=== PATIENT | female | born 1950 | race Caucasian/White ===

== ENCOUNTER → 2019-10-01 09:00 | Outpatient (BNVA) | payer MEDICARE, OTHER, SELFPAY | PROVIDERS: Family Provider Family Medicine; PCP Nurse Practitioner Family; Visit Provider Nurse Practitioner Family | DX: I10 Essential (primary) hypertension (principal); E03.9 Hypothyroidism, unspecified; E55.9 Vitamin D deficiency, unspecified; E78.5 Hyperlipidemia, unspecified; L65.9 Nonscarring hair loss, unspecified; G47.00 Insomnia, unspecified | CPT/HCPCS: 80053; 80061; 82306; 84439; 84443 ==

== ENCOUNTER 2020-09-23 01:54 | Observation (INO) | payer MEDICARE, OTHER, SELFPAY ==
[2020-09-23] VITALS (9 sets, daily range): BP systolic 135–163; BP diastolic 68–82; PULSE 68–84; RESP 17–21; TEMP 36.6–37.2; O2SAT 93–97; BMI 30.2
--- NOTE | 2020-09-23 01:59 | W.ED.ALLEREA ---
HPI - Allergic Reaction General: Chief complaint: Allergic Reaction Stated complaint: ALLERGIC REACTION Time Seen by Provider: 09/23/20 01:57 Source: patient, family and EMS Mode of arrival: EMS Limitations: no limitations History of Present Illness: HPI narrative: 70-year-old female developed acute onset diffuse urticaria this evening, she called 911, her is a chemist proteins and happened to take the call, he administered 50 mg of Benadryl, Zofran 4 mg-her rash started to dissipate, she became hypotensive and had a syncopal episode, systolic pressures in the 70s. No oral or airway involvement at any point. Her blood pressure is improved with a saline bolus. She at that time was resistant to coming to the ED, so her was in the stay and watch her for period of time. I had been on the phone with him while he was out at the initial call. I recommended that he give her a dose of Depo-Medrol 125 mg IM and come to the ED if there is any recurrence. Shortly after that, she did have recurrence of the diffuse rash and itching, he administered 0.3 mg IM epi and transported her here to the ED. She denies any lip, tongue, or throat swelling. No hoarseness. No wheezing or coughing. She has had episodes of urticaria in the past, but never this widespread or symptomatic. She has been eating some flavored pecans this evening-she had a few around 6 PM, and then ate some more a few hours later, just prior to the onset of symptoms. No new medications. MD complaint: allergic reaction and hives Onset (ago): hour(s) Exposure: unknown and food Associated symptoms: Deny facial swelling, nausea, tongue swelling or vomiting Treatment prior to arrival: benadryl, epinephrine, steroids and IV fluids Review of Systems General: Reports: 10 or more systems reviewed and unremarkable except in HPI and below Const: Denies: fever(s), chills, body aches, change in appetite or fatigue Eyes: Denies: change in vision, blurry vision, blind spots, eye discomfort, eye discharge or eye redness ENMT: Denies: throat pain, uvular edema, enlarged tonsils, odynophagia or oral sores Card: Denies: chest pain, irregular heart rhythm or edema Resp: Denies: dyspnea, wheezing, stridor, pain on inspiration or chest congestion GI: Denies: nausea, vomiting, diarrhea or GI cramping : Denies: difficulty voiding, dysuria or urinary frequency Musc: Denies: neck pain, back pain or extremity pain Skin/Breast: Reports: rash, pruritus and erythema Neuro: Denies: headache(s), numbness in extremities or weakness in extremities Endo: Denies: polyuria, polydipsia or tired all the time All/Imm: Reports: urticaria; Denies: throat swelling, tongue swelling, facial swelling, acute wheezing, itchy eyes or seasonal rhinorrhea PFSH ED PFSH: Medical History Acquired hypothyroidism CAD (coronary artery disease) Depression History of [place] (myocardial infarction) Hyperlipidemia Hypertension Insomnia Family History Sister Cancer Mother Heart disease Hypertension Social History Smoking and tobacco status: never smoked Alcohol intake: current Alcohol intake frequency: 0-2 Drinks per Day Physical Exam Const: COMMON NORMALS: no acute distress and patient oriented x3 GENERAL APPEARANCE: cooperative, comfortable, anxious and well hydrated; not in distress, not lethargic, not ill appearing and not frail appearing ORIENTATION/CONSCIOUSNESS: not lethargic HENMT: COMMON NORMALS: normocephalic, atraumatic and TM's normal bilaterally HEAD & SCALP: normocephalic and atraumatic FACE & SINUS: normal facial exam, sinuses nontender and face symmetric TYMPANIC MEMBRANE: TM's normal bilaterally THROAT: no uvular edema Eye: COMMON NORMALS: Equal, round and reactive pupils present, EOMs intact bilaterally, conjunctivae normal and no scleral icterus CONJUNCTIVA: Yes conjunctivae normal PUPIL: Yes Equal, round and reactive pupils present Resp: COMMON NORMALS: normal respiratory effort, No retractions, No use of accessory muscles and clear to auscultation bilaterally EFFORT & INSPECTION: No labored and No stridor AUSCULTATION: clear to auscultation bilaterally Cardio: COMMON NORMALS: regular rate and regular rhythm RATE: regular rate RHYTHM: regular rhythm HEART SOUNDS: Murmur heart sound present systolic Intensity: II/ Characteristics: soft GI: COMMON NORMALS: Normal to inspection, nondistended, normoactive bowel sounds present, Soft to palpation and non-tender INSPECTION: Yes normal to inspection PALPATION: Yes Soft to palpation Extremity: COMMON NORMALS: normal to inspection, full ROM, capillary refill normal and no clubbing, cyanosis or edema Neuro: COMMON NORMALS: patient oriented x3, CN's II-XII intact bilaterally, moves all extremities, no focal motor deficits and no sensory deficits noted SENSORIUM/ORIENTATION: No lethargic Skin: COMMON NORMALS: turgor normal GENERAL SKIN EXAM: turgor normal RASHES: rashes noted Patchy urticaria over extensor surfaces of arms, back Rash type: Yes patch and Yes maculopapular Rash distribution: Yes symmetrical, Yes coalescing and Yes scattered Rash color: Yes erythematous Rash shape: No target and No central clearing Rash consistency: No fluctuent, Yes soft, No rubbery and No indurated Rash surface: Yes warm Rash tenderness: Yes nontender Rash findings consistent with: Yes hives Course Vital Signs: Vital signs: Vital Signs Temperature 98.8 F 09/23/20 01:55 Pulse Rate 83 09/23/20 03:58 Respiratory Rate 21 H 09/23/20 03:58 Blood Pressure 163/79 09/23/20 03:58 Pulse Oximetry 96 09/23/20 03:58 MDM - Allergic Reaction MDM Narrative: Medical decision making narrative: 70-year-old female with diffuse urticaria, allergic reaction to unknown substance. Had improvement initially with IV Benadryl and Solu-Medrol, but then had recurrence of symptoms shortly after, so she was brought to the ED. CBC and chemistry stable. UA does not show any sign of infection. Admit to [facility] for further monitoring to ensure no recurrence. Discussed the case with , he accepts the admission. Differential Diagnosis: Differential Diagnosis allergic reaction: Likely anaphylaxis, allergic reaction, angioedema, adverse reaction to drug, viral enanthem and urticaria Lab Data: Attestation: I reviewed the patient's lab results. Labs: Lab Results 09/23/20 09/23/20 09/23/20 Range/Units 02:53 02:53 03:10 WBC 11.6 H (4.0-10.0) 10^3/ uL RBC 4.40 (4.1-5.3) 10^6/u L Hgb 13.6 (11.5-15.3) g/dL Hct 43.0 (37.0-47.0) % MCV 97.7 (81-99) fL MCH 30.9 (28.0-34.0) pg MCHC 31.6 (30.0-36.0) g/dL RDW 12.7 (12.1-15.1) % Plt Count 196 (130-400) 10^3/c mm MPV 10.6 H (7.4-10.4) fL Neut % (Auto) 85.5 % Lymph % (Auto) 10.2 % [place] % (Auto) 3.3 % Eos % (Auto) 0.3 % Baso % (Auto) 0.4 % Neut # (Auto) 9.86 H (1.8-7.7) 10^3/u L Lymph # (Auto) 1.2 (0.8-4.8) 10^3/u L [place] # (Auto) 0.4 (0.2-0.9) 10^3/u L Eos # (Auto) 0.0 (0.0-0.8) 10^3/u L Baso # (Auto) 0.1 (0.0-0.1) 10^3/u L Nucleated RBC % (a uto) 0 % Nucleated RBCs # 0.0 /100WBC Sodium 144 (136-145) mmol/L Potassium 3.4 L (3.5-5.1) mmol/L Chloride 110 H (98-107) mmol/L Carbon Dioxide 20 L (22-29) mmol/L Anion Gap 17.4 (5-19) BUN 17 (8-23) mg/dL Creatinine 0.8 (0.5-0.9) mg/dL GFR Calculation Not Reportable Glucose 236 H (65-115) mg/dL Calculated Osmolal ity 307 H (285-295) mOsm/k g Calcium 7.9 L (8.5-10.5) mg/dL Total Bilirubin 0.2 (0.15-1.2) mg/dL AST 17 (0-32) U/L ALT 14 (0-33) U/L Alkaline Phosphata se 79 (35-105) IU/L Total Protein 6.5 L (6.6-8.7) g/dL Albumin 3.6 (3.5-5.2) g/dL Globulin 2.9 (1.3-4.6) g/dL Urine Color Yellow (Yellow) Urine Appearance Clear (CLEAR) Urine pH 5 (5-7) Ur Specific Gravit y 1.020 (1.005-1.030) Urine Protein Neg (Negative) Urine Glucose (UA) 1+ (Normal) Urine Ketones Negative (Negative) Urine Blood Neg (Negative) Urine Nitrate Negative (Negative) Urine Bilirubin Neg (Negative) Urine Urobilinogen Norm (Negative) mg/dL Ur Leukocyte Nikki ase Negative (Negative) Discharge Plan Discharge Patient Disposition: Admitted As Inpatient Condition: Stable Coding Level of Care Code ED [employer] Tm[employer] Developer for Nick Fwd Exam Comprehensive
[2020-09-23] MEDS: diphenhydrAMINE 50 mg/mL SDV 1mL IVP (02:22)
[2020-09-23] MEDS: famotidine 20 mg/2 mL INJ 40 MG IVP (02:26)
[2020-09-23 03:07] LABS: Basophils # 0.1 10^3/uL (0.0-0.1); Basophils % 0.4 %; Eosinophils % 0.3 %; Hemoglobin 13.6 g/dL (11.5-15.3); Lymphocytes # 1.2 10^3/uL (0.8-4.8); Lymphocytes % 10.2 %; Mean Corpuscular HGB Conc 31.6 g/dL (30.0-36.0); Mean Corpuscular Hemoglobin 30.9 pg (28.0-34.0); Mean Corpuscular Volume 97.7 fL (81-99); Mean Platelet Volume 10.6 fL (7.4-10.4); Monocytes # 0.4 10^3/uL (0.2-0.9); Monocytes % 3.3 %; Neutrophils # 9.86 10^3/uL (1.8-7.7); Neutrophils % 85.5 %; Nucleated Red Blood Cells % 0 %; Platelet Count 196 10^3/cmm (130-400); Red Cell Distribution Width 12.7 % (12.1-15.1); White Blood Count 11.6 10^3/uL (4.0-10.0)
[2020-09-23 03:14] LABS: Add Urine Microscopic? NO
[2020-09-23 03:16] LABS: Alanine Aminotransferase 14 U/L (0-33); Albumin Level 3.6 g/dL (3.5-5.2); Alkaline Phosphatase 79 IU/L (35-105); Anion Gap 17.4 (5-19); Aspartate Amino Transferase 17 U/L (0-32); Blood Urea Nitrogen 17 mg/dL (8-23); Calcium 7.9 mg/dL (8.5-10.5); Carbon Dioxide 20 mmol/L (22-29); Chloride 110 mmol/L (98-107); Globulin 2.9 g/dL (1.3-4.6); Glucose 236 mg/dL (65-115); Osmolality Calculated 307 mOsm/kg (285-295); Potassium 3.4 mmol/L (3.5-5.1); Sodium 144 mmol/L (136-145); Total Bilirubin 0.2 mg/dL (0.15-1.2); Total Protein 6.5 g/dL (6.6-8.7)
[2020-09-23 03:18] LABS: Bilirubin Urine Neg (Negative); Blood Urine Neg (Negative); Glucose Urine UA 1+ (Normal); Ketones Urine Negative (Negative); Leukocyte Esterase Urine Negative (Negative); Nitrate Urine Negative (Negative); Protein Urine Neg (Negative); Urine Appearance Clear (CLEAR); Urine Color Yellow (Yellow); Urobilinogen Urine Norm (Negative); pH Urine 5 (5-7)
[2020-09-23] MEDS: calcium carbonate 500 mg Chew Tablet 1000 MG PO (03:57)
--- NOTE | 2020-09-23 05:40 | P.HP_ITS ---
Providers/Chief Complaint Admitting Physician: Hari Li Primary Care Provider: Stuart Pan DO Chief Complaint: ALLERGIC REACTION History of Present Illness Adela Spears is a 70 year old female with past medical history of hypertension, coronary artery disease s/p hx of PCI/stent, bilateral carotid artery stenosis, s/p stent who is presenting to ER with allergic reactions. Patient stated shortly after dinner where she tired a new snack, she started to have diffuse urticarial rash primarily in bilateral upper extremity. did not have any tongue swelling or airway compromise. She called her who is a local EMS who up arrival found her to be hypotensive with sbp < 70. He started an IV and administered 1L bolus of NS, solu-medrol 125mg IV x1 and Benadryl. . During this time he stated she briefly had a syncopal event lasting 25 seconds. Epi x 1 was then given. Initially hives had resolved however started to return at which point she was brought to ER. While in ER she was given additional anti- histamines. Denied any new medications or any known allergies. She does have unexplained contact dermatitis at times. Denied any recent fever, chills, nausea or vomiting. No chest pain or dyspnea. Review of Systems General: Reports: 10 or more systems reviewed and unremarkable except in HPI and below Medications/Allergies Home Medications Medication Instructions Recorded Confirmed Last Taken Type aspirin 81 mg tablet,delayed 81 mg PO DAILY 10/01/19 02/25/20 Unknown History release atorvastatin 20 mg tablet 20 mg PO DAILY 10/01/19 02/25/20 Unknown History biotin 1 mg capsule 1 mg PO DAILY 10/01/19 02/25/20 Unknown History calcium carbonate 600 mg calcium 600 mg PO DAILY 10/01/19 02/25/20 Unknown History (1,500 mg) tablet cholecalciferol (vitamin D3) 50 1,000 unit PO DAILY tab 10/01/19 02/25/20 Unknown History mcg (2,000 unit) tablet clopidogrel 75 mg tablet 75 mg PO DAILY 10/01/19 02/25/20 Unknown History coenzyme Q10 75 mg capsule 100 mg PO DAILY cap 10/01/19 02/25/20 Unknown History levothyroxine 25 mcg capsule 25 mcg PO DAILY 10/01/19 02/25/20 Unknown History lorazepam 1 mg tablet 1 mg PO .COMPLEX PRN #30 tab 10/01/19 02/25/20 Unknown Rx magnesium 200 mg tablet 400 mg PO DAILY tab 10/01/19 02/25/20 Unknown History multivitamin 1 cap PO DAILY 10/01/19 02/25/20 Unknown History nitroglycerin 0.4 mg sublingual 0.4 mg SUBLINGUAL Q5M PRN 10/01/19 02/25/20 Unknown History tablet metoprolol succinate 25 mg 12.5 mg PO .BEDTIME #15 tab 09/22/20 Unknown Rx tablet,extended release 24 hr Allergies Allergy/AdvReac Type Severity Reaction Status Date / Time No Known Allergies Allergy Verified 02/25/20 15:40 PFSH Acute PFSH: Medical History (Updated 09/23/20 @ 05:54 by Hari Li MD) Acquired hypothyroidism CAD (coronary artery disease) Depression History of [place] (myocardial infarction) Hyperlipidemia Hypertension Insomnia Family History Sister Cancer Mother Heart disease Hypertension Social History Smoking and tobacco status: never smoked Alcohol intake: current Alcohol intake frequency: 0-2 Drinks per Day Vitals/I&O/Wt Last Vital Signs Temp 98.8 F 09/23/20 01:55 Pulse 72 09/23/20 05:00 Resp 18 09/23/20 05:00 BP 157/81 09/23/20 05:00 Pulse Ox 95 09/23/20 05:00 Weight last 48 hrs Weight 84.822 kg Physical Exam Narrative: EXAM NARRATIVE: General : Alert, awake oriented x 3 NAD HEENT: EOMI, grossly unremarkable Chest : Non-labored respiration CVS : NSR ABD: Soft,NT,ND Ext: No edema Skin: diffuse smooth, slightly elevated papules, erythematous, blanching with pressure. Data : 09/23/20 02:53 09/23/20 02:53 A&P Assessment and plan (1) Allergic reaction: Status: Acute (2) Syncope: Status: Acute (3) Hypotension: Status: Acute (4) CAD (coronary artery disease): Status: Acute Qualifiers: Coronary Disease-Associated Artery/Lesion type: [place] artery [place] vs. transplanted heart: [place] heart Associated angina: without angina Qualified Code(s): I25.10 - Atherosclerotic heart disease of [place] coronary artery without angina pectoris (5) Hypertension: Status: Acute (6) Acquired hypothyroidism: Status: Acute (7) Hyperlipidemia: Status: Acute Qualifiers: Hyperlipidemia type: other hyperlipidemia Qualified Code(s): E78.49 - Other hyperlipidemia (8) Insomnia: Status: Acute (9) Hypokalemia: Status: Acute Anaphylaxis - Possibly food related - S/p Epi - S/p solu-medrol 125mg x 1 in EMS - Continue solumedrol 40 mg IV q8hr - Pepcid 20 mg po BID - Zyrtec 10 mg PO daily - Benadryl PRN - NS at 75cc/hr - Refer to call center operations manager outpatient once off steroids - Resume home medications - Monitor on tele due to epi Dispo: If stable and noted improvement may consider discharge later today Attestations Medical Necessity Statement*: Anticipate less than 2 midnight stay in hospital for work up of allergic reaction Time Spent in Patient Care: Greater than 35 minutes (>than 50% of time spent in counselling and/or direct pt care on unit) . Coding Level of Care Code Acute First Officer And Flight Instructor for g Fwd Diagnoses Allergic reaction T78.40XA Syncope R55 Hypotension I95.9 CAD (coronary artery disease) I25.10 Coronary Disease-Associated Artery/Lesion type: [place] artery [place] vs. transplanted heart: [place] heart Associated angina: without angina Hypertension I10 Acquired hypothyroidism E03.9 Hyperlipidemia E78.49 Hyperlipidemia type: other hyperlipidemia Insomnia G47.00 Hypokalemia E87.6
[2020-09-23] MEDS: sodium chloride 0.9% 500 ML 75 ML IV (05:52)
[2020-09-23] MEDS: potassium chloride ER 20 mEq Tablet PO (06:38)
[2020-09-23] MEDS: cetirizine 10 mg Tablet PO (09:27)
[2020-09-23] MEDS: aspirin 81 mg EC Tablet PO (09:27)
[2020-09-23] MEDS: clopidogrel 75 mg Tablet PO (09:27)
[2020-09-23] MEDS: famotidine 20 mg Tablet PO (09:27)
[2020-09-23] MEDS: levothyroxine 25 mcg Tablet PO (09:27)
--- NOTE | 2020-09-23 09:47 | PC.CHAP ---
Pastoral Care Encounter/Spiritual Assessment Type of Contact [] Declined dietetics teacher visit [] Patient/Family/Request visit [] Outpatient visit [] Follow-up visit [] Physician referral [] Code/Alert [x] Routine visit [] Staff referral [] Actively dying [] Patient sleeping [] Family support [] [] Out of room [] Palliative care [] [] Receiving care in room [] Pre-surgical visit [] Trauma [] Long length of stay [] ICU visit [] Other: Relational/Emotional Strength [x] Patient feels connected with others/family/visitors/staff [] Distress [] Loneliness/isolation [] Abandonment Spirituality of Patient [x] Person of Mansi [x] Attends Spiritism of their Mansi [x] Believes in Prayer [x] Reads Bible or Quaker materials [] There are Spiritual issues to be addressed Hammer Mill 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 Interventions [x] Prayer [] Active listening [x] Non-anxious presence [x] Spiritual/emotional support [] Crisis/trauma care [] Spiritual counseling [] Bereavement support [] Provided bereavement packet [] Provided Bible/devotional materials [] Provided toy/stuffed animal, coloring book to patient or family member [] Provided Communion [] Anointing/[place] [] Salvation [x] Completed spiritual assessment [] Other: Impact on Illness or Injury [] Angry [] Fearful [] Anxious [] Often cries [] Exhaustion [] Unable to work [] Unable to attend evangelical [] Unable to walk/stand [] Unable to read [] Unable to drive [] Unable to eat/drink [] Unable to sleep [] Unable to be with family [] Patient intubated [] Other: Summary patient interest in helping others Time spent with patient 20 min
--- NOTE | 2020-09-23 10:44 | P.DS_ITS ---
Discharge Providers Date of Admission: 09/23/20 04:06 Date of Discharge: September 23, 2020 Attending Provider at Admission: Hari Li Attending Provider at Discharge: Bronson Arias MD Primary Care Provider: Stuart Pan DO Diagnoses at Discharge Discharge Diagnosis (1) Allergic reaction: Status: Acute (2) Syncope: Status: Acute (3) Hypotension: Status: Acute (4) CAD (coronary artery disease): Status: Acute Qualifiers: Coronary Disease-Associated Artery/Lesion type: [place] artery [place] vs. transplanted heart: [place] heart Associated angina: without angina Qualified Code(s): I25.10 - Atherosclerotic heart disease of [place] coronary artery without angina pectoris (5) Hypertension: Status: Acute (6) Acquired hypothyroidism: Status: Acute (7) Hyperlipidemia: Status: Acute Qualifiers: Hyperlipidemia type: other hyperlipidemia Qualified Code(s): E78.49 - Other hyperlipidemia (8) Insomnia: Status: Acute (9) Hypokalemia: Status: Acute Reason for Visit Reason for Visit: ALLERGIC REACTION Hospital Course Hospital Course This is a 70-year-old female with a past medical history of hypertension, CAD status post history of PCI/stent, bilateral carotid artery stenosis, who presents to [facility] due to an allergic reaction Patient developed an allergic reaction after consuming chocolate covered pecans, no anaphylaxis, no airway compromise, no tongue swelling, but had diffuse rash with hypotension, her who is an EMT was able to give her a liter of fluid, Solu-Medrol, Benadryl. She then developed a syncopal episode outside the hospital thought to be secondary to allergic reaction, was given epi x1. Patient clinically improved, however developed a rebound phenomenon with recurrent wheals and hives so was brought to the emergency room, arrival to the emergency room, her allergic reaction had significantly improved, she was given additional antihistamines, Patient was examined on 09/23/2020, no lip or tongue swelling, no wheals or hives, no lightheadedness, no dizziness, no chest pain, no shortness of breath she was admitted for monitoring after allergic reaction. She received steroids, fluids, Pepcid, Zyrtec, Benadryl as needed, clinically monitored. Patient remained asymptomatic, no rebound phenomenon. She will be discharged on a steroid taper, Pepcid, Zyrtec, EpiPen. Patient was advised to avoid all types of nuts for now. In addition we have referred her to an licensed practical nurse clinic nurse. She was advised that if she were to have recurrent allergic reaction to call 911. Physical Exam Const: COMMON NORMALS: no acute distress and patient oriented x3 HENMT: COMMON NORMALS: normocephalic HEAD & SCALP: normocephalic Neck/C-Spine: COMMON NORMALS: no JVD Resp: COMMON NORMALS: normal respiratory effort, No retractions, No use of accessory muscles and clear to auscultation bilaterally AUSCULTATION: clear to auscultation bilaterally Cardio: COMMON NORMALS: no JVD, regular rate, regular rhythm, S1 normal heart sound present and S2 normal heart sound present RATE: regular rate RHYTHM: regular rhythm HEART SOUNDS: S1 normal heart sound present and S2 normal heart sound present GI: COMMON NORMALS: Normal to inspection, nondistended, normoactive bowel sounds present, Soft to palpation, non-tender, No hepatosplenomegaly present, no masses and no bruits PALPATION: Yes Soft to palpation and Yes No hepatosplenomegaly present Extremity: COMMON NORMALS: capillary refill normal, no clubbing, cyanosis or edema, no calf tenderness and no pedal edema Neuro: COMMON NORMALS: patient oriented x3 Psych: COMMON NORMALS: mental status grossly normal Discharge Data Data Completed and Pending: Pending at discharge Category Date Time Status Basic Metabolic P yoana AM LABS Lab 09/24/20 04:00 Ordered Complete Blood Co unt w/Auto AM LABS Lab 09/24/20 04:00 Ordered Labs from last 24 hours 09/23/20 09/23/20 09/23/20 03:10 02:53 02:53 WBC 11.6 H RBC 4.40 Hgb 13.6 Hct 43.0 MCV 97.7 MCH 30.9 MCHC 31.6 RDW 12.7 Plt Count 196 MPV 10.6 H Neut % (Auto) 85.5 Lymph % (Auto) 10.2 [place] % (Auto) 3.3 Eos % (Auto) 0.3 Baso % (Auto) 0.4 Neut # (Auto) 9.86 H Lymph # (Auto) 1.2 [place] # (Auto) 0.4 Eos # (Auto) 0.0 Baso # (Auto) 0.1 Nucleated RBC % (a uto) 0 Nucleated RBCs # 0.0 Sodium 144 Potassium 3.4 L Chloride 110 H Carbon Dioxide 20 L Anion Gap 17.4 BUN 17 Creatinine 0.8 GFR Calculation Not Reportable Glucose 236 H Calculated Osmolal ity 307 H Calcium 7.9 L Total Bilirubin 0.2 AST 17 ALT 14 Alkaline Phosphata se 79 Total Protein 6.5 L Albumin 3.6 Globulin 2.9 Urine Color Yellow Urine Appearance Clear Urine pH 5 Ur Specific Gravit y 1.020 Urine Protein Neg Urine Glucose (UA) 1+ Urine Ketones Negative Urine Blood Neg Urine Nitrate Negative Urine Bilirubin Neg Urine Urobilinogen Norm Ur Leukocyte Nikki ase Negative Vitals: Last Vital Signs Temp 97.8 F 09/23/20 07:01 Pulse 68 09/23/20 07:01 Resp 17 09/23/20 07:01 BP 143/75 09/23/20 07:01 Pulse Ox 93 09/23/20 07:01 Discharge Plan Discharge Patient Disposition: Home Condition: Stable Prescriptions: New famotidine 20 mg Tablet 20 mg PO BID 15 Days Qty: 30 RF: 0 cetirizine 10 mg Tablet 10 mg PO DAILY 15 Days Qty: 15 RF: 0 epinephrine [EpiPen] 0.3 mg/0.3 mL auto-injector 0.3 mg IM Q10M PRN (Reason: hypersensitivity reaction or anaphylaxis) Qty: 2 RF: 0 prednisone 10 mg tablet See Rx Instructions .ROUTE .COMPLEX Qty: 53 RF: 0 Continued clopidogrel [Plavix] 75 mg tablet 75 mg PO BEDTIME RF: 0 aspirin [Adult Aspirin Regimen] 81 mg tablet,delayed release (DR/EC) 81 mg PO BEDTIME RF: 0 atorvastatin 20 mg tablet 20 mg PO BEDTIME RF: 0 levothyroxine 25 mcg capsule 25 mcg PO QAM RF: 0 nitroglycerin 0.4 mg tablet, sublingual 0.4 mg SUBLINGUAL Q5M PRN (Reason: Chest Pain) RF: 0 calcium carbonate [Calcium 600] 600 mg calcium (1,500 mg) tablet 600 mg PO DAILY RF: 0 metoprolol succinate 25 mg tablet extended release 24 hr 12.5 mg PO .BEDTIME Qty: 15 RF: 0 multivitamin Tablet 1 tab PO BEDTIME RF: 0 Benadryl 25 mg Capsule 25 - 50 mg PO PRN RF: 0 bisacodyl 5 mg Tablet,Delayed Release (Dr/Ec) 5 mg PO PRN PRN (Reason: Constipation (2nd)) RF: 0 lorazepam 1 mg tablet 1 mg PO BEDTIME PRN (Reason: Anxiety) RF: 0 CoQ-10 100 mg Capsule 100 mg PO DAILY RF: 0 magnesium oxide 400 mg magnesium Tablet 400 mg PO DAILY RF: 0 Metamucil See Rx Instructions .ROUTE .COMPLEX RF: 0 Vitamin D3 1 cap PO DAILY RF: 0 biotin 1 cap PO DAILY RF: 0 Discharge Orders: Discharge Order (Routine); Ordered 09/23/20 Ordered By: Bronson Arias Referrals: Donavan Ames DO [Family Provider] - Stuart Pan DO [Primary Care Provider] - Discharge Diet: As Directed Discharge Activity: Resume usual activity Patient Instructions: Food Allergy - Adult, Nut Allergy, Analgesic/Antihistamine/Decongestant (By mouth), Antihistamine/Acetaminophen (By mouth), Food Allergy (DC), Anaphylaxis (DC) Activity Restrictions/Additional Instructions: -For now I would avoid all type of nuts -Please continue steroid taper, Pepcid, cetirizine -EpiPen should always be carried on hand in case you have anaphylactic reaction or allergic reaction -I have referred you to a older adult social work specialist in [place], lashon vega, [phone] Discharge Attestations Time Spent in Discharge Care*: less than 30 min Quality Metrics Clinical Quality Measures During this hospital stay, did patient experience: None Coding Level of Care Code Acute Chg FW DC note Diagnoses Allergic reaction T78.40XA Syncope R55 Hypotension I95.9 CAD (coronary artery disease) I25.10 Coronary Disease-Associated Artery/Lesion type: [place] artery [place] vs. transplanted heart: [place] heart Associated angina: without angina Hypertension I10 Acquired hypothyroidism E03.9 Hyperlipidemia E78.49 Hyperlipidemia type: other hyperlipidemia Insomnia G47.00 Hypokalemia E87.6
== END 2020-09-23 13:30 | disposition home or self-care (01) ==
LOC: ER 04:06 → MEDSURG 04:58
PROVIDERS: Admitting Provider Hospitalist; Emergency Provider Family Medicine; Family Provider Family Medicine; PCP Family Medicine; Visit Provider Family Medicine
DX: T78.40XA Allergy, unspecified, initial encounter (principal); R55 Syncope and collapse; I95.9 Hypotension, unspecified; I25.10 Atherosclerotic heart disease of native coronary artery without angina pectoris; I10 Essential (primary) hypertension; E78.49 Other hyperlipidemia; G47.00 Insomnia, unspecified; E87.6 Hypokalemia; E03.9 Hypothyroidism, unspecified; Z95.5 Presence of coronary angioplasty implant and graft; Z79.82 Long term (current) use of aspirin; I25.2 Old myocardial infarction; E78.5 Hyperlipidemia, unspecified
CPT/HCPCS: 36415; 80053; 81003; 85025; 96361; 96374; 96375; 99285; G0378; J1200; J2920; J3490; J7040

== ENCOUNTER 2021-01-06 09:52 | Outpatient (CLI) | payer MEDICARE, OTHER, SELFPAY ==
--- NOTE | 2021-01-06 10:12 | USCV_ITS ---
Adela Spears Age: 70 Gender: F : 1950 Exam Date: 01/06/2021 10:31 Ordering Phys: Maryann Carbone MD ([email or web address]) Technologist: Prachi Rico [place] [facility] [place]: SHORTNESS OF BREATH BP: 120 / 70 HR: 78 Rhythm: Sinus Technical Quality: Adequate MEASUREMENTS (Male / Female) Normal Values 2D ECHO LV Diastolic Diameter PLAX 3.7 cm 4.2 - 5.9 / 3.9 - 5.3 cm LV Systolic Diameter PLAX 1.9 cm IVS Diastolic Thickness 1.3 cm 0.6 - 1.0 / 0.6 - 0.9 cm IVS Systolic Thickness 1.7 cm LVPW Diastolic Thickness 1.0 cm 0.6 - 1.0 / 0.6 - 0.9 cm LVPW Systolic Thickness 1.3 cm RV Chamber Size 2.9 cm LVOT Diameter 2.0 cm LV Ejection Fraction 2D Teich 79.4 % LV Ejection Fraction MOD 2C 61.0 % LV Ejection Fraction 2C AL 63.1 % LA Diameter 2.4 cm LA Width 2.6 cm LA Height 4.0 cm RA Width 3.0 cm RA Height 3.3 cm Aorta at Sinotubular Diameter 2.1 cm M-MODE Aortic Annulus Diameter 2.8 cm LA Ao Ratio MM 0.9 MV E Point Septal Separation 0.6 cm DOPPLER AV Peak Velocity 123.0 cm/s LVOT Peak Velocity 75.0 cm/s AV Area Cont Eq vti 2.0 cm squared AV Area Cont Eq pk 1.9 cm squared MV Area PHT 4.0 cm squared Mitral E to A Ratio 0.8 MV E' Velocity 34.0 cm/s Mitral E to MV E' Ratio 7.7 Mitral E to LV E' Lateral Ratio 6.3 Mitral E to LV E' Septal Ratio 9.9 TR Peak Velocity 150.0 cm/s TR Peak Gradient 9.0 mmHg TV Peak E Velocity 50.0 cm/s PV Peak Velocity 83.0 cm/s RV Acceleration Time 0.1 s RV Ejection Time 0.2 s RV AcT/ET 0.2 FINDINGS Left Ventricle Normal left ventricular cavity size. Normal left ventricular systolic function. No regional wall motion abnormalities. Left ventricular ejection fraction is estimated at 65 %. Grade I/IV diastolic dysfunction (abnormal relaxation filling pattern), normal to mildly elevated filling pressures. Right Ventricle The right ventricle is normal in size and function. RVSP could not be calculated due to incomplete tricuspid regurgitation velocity profile. Right Atrium The right atrium is normal in size. Left Atrium The left atrium is normal in size. Mitral Valve Moderately thickened mitral valve. Moderate mitral annular calcification. No mitral valve stenosis. No mitral valve regurgitation. Aortic Valve Structurally normal aortic valve without significant sclerosis or stenosis. There is no aortic regurgitation. Tricuspid Valve Structurally normal tricuspid valve without significant stenosis or regurgitation. Pulmonary artery systolic pressure is normal. Pulmonic Valve Structurally normal pulmonic valve without significant stenosis. There is no pulmonic regurgitation. Pericardium Normal pericardium without effusion. Aorta Normal ascending aorta dimension. CONCLUSIONS 1-Normal left ventricular cavity size. Normal left ventricular systolic function. No regional wall motion abnormalities. Left ventricular ejection fraction is estimated at 65 %. Grade I/IV diastolic dysfunction (abnormal relaxation filling pattern), normal to mildly elevated filling pressures. 2-Moderately thickened mitral valve. Moderate mitral annular calcification. No mitral valve stenosis. No mitral valve regurgitation. 3-There is no pericardial effusion. 4-No significant valve abnormalities. 5-Right atrial pressure is around 5 mm of mercury. 6-There are no prior echocardiogram studies to compare. Maryann Carbone MD (Electronically Signed) Final Date: 06 January 2021 20:50 S
[2021-01-06 10:26] VITALS: BMI 30.2
--- NOTE | 2021-01-06 10:27 | ECG_ITS ---
[facility] Test Date: 2021-01-06 Pat Name: Adela Spears Department: Room: Gender: Female Dope Mixer: : 1950 Requested By: Maryann Carbone Order Number: [id number] Vera MD: MARYANN CARBONE Interpretive Statements NAME OF STUDY: LEXISCAN SESTAMIBI STRESS TEST INDICATION: Shortness of Breath, NOTE: Please note that this is the electrocardiogram portion of the Lexiscan/Sestamibi stress test. The perfusion scan will be documented separately. DATA: Baseline heart rate was 65 beats per minute. Baseline blood pressure was 152/85 millimeters of mercury. Target heart rate was 149. Maximum heart rate achieved was 104. which was 69 % of the predicted target heart rate. Maximum blood pressure was 165/88 millimeters of mercury. The reason for ending the test was completion of the protocol. The patient did not experience any symptoms. ELECTROCARDIOGRAM: BASELINE: Sinus rhythm. Normal axis. Anterior T wave inversion could be nonspecific cannot rule out ischemia, otherwise, no ST-T changes suggestive of ischemia noted. No arrhythmia noted. EXERCISE: After Lexiscan injection, no ST-T changes suggestive of ischemic noted. No arrhythmia noted. CONCLUSION: Please note due to baseline abnormality of the EKG specificity and sensitivity of the EKG portion of LexiScan MIBI stress test will be low 1. EKG not suggestive of ischemia 2. Lexiscan injection unremarkable. 3. Perfusion scan will be documented separately. Electronically Signed On 01-08-2021 14:57:42 CDT by MARYANN CARBONE [email or web address] [id number]
--- NOTE | 2021-01-06 10:28 | NMCV_ITS ---
NM jaqueline perf SPECT r/s* [id number] Adela Spears Age: 70 Gender: F : 1950 Exam Date: 01/06/2021 11:12 Ordering Phys: Maryann Carbone MD ([email or web address]) Technologist: HA Valles Exam Location: [facility] Indications: SHORTNESS OF BREATH STRESS TEST Please see separate stress test report in [facility] for full findings IMAGE PROTOCOL Rest/Stress 1 Lexiscan Day Radiopharmaceutical Dose (mCi) Administration Site Administered by Rest: Tc-99m 10.7 IV HA Burrell Sestamibi Stress:Tc-99m 33.0 IV HA Burrell Sestamibi Rest: 06-Jan-2021 60 Discovery 630 Stress: 06-Jan-2021 30 Discovery 630 0.4mg Lexiscan. Images obtained in supine and prone position. SPECT RESULTS Technical Quality: Excellent Raw Data Analysis: Breast attenuation Image Corrections: No attenuation or motion correction applied Summed Stress Score: 5 Summed Rest Score: 10 Summed Difference Score: 0 PERFUSION FINDINGS Medium-sized area of fixed perfusion defect noted in basal to mid inferior inferoapical and apical wall on both rest and stress images suggestive of artifact versus old myocardial infarction. FUNCTIONAL RESULTS (calculated via Gated SPECT) Stress Image LV EF (%): 78 Stress EDV (mL):51 TID: 0.97 Stress ESV (mL):11 Rest Image LV EF (%): 78 FUNCTIONAL FINDINGS: There is normal left ventricular systolic function. IMPRESSIONS Old myocardial infarction versus scarring noted in the basal to mid inferior inferoapical and apical wall without mino-infarct ischemia. This study is negative for ischemia. EKG segment will be documented separately Maryann Carbone MD (Electronically Signed) Final Date: 06 January 2021 20:37 S
[2021-01-06] MEDS: regadenoson 0.4 Mg/5 ml Syringe IVP (12:12)
[2021-01-06 12:15] VITALS: BP 145/83; PULSE 88
== END 2021-01-06 09:53 | disposition home or self-care (01) ==
LOC: RAD 10:02 → CDL 10:24
PROVIDERS: PCP Family Medicine; Visit Provider Internal Medicine Cardiovascular Disease
DX: R06.02 Shortness of breath (principal); I05.9 Rheumatic mitral valve disease, unspecified
CPT/HCPCS: 78452; 93017; 93306; A9500; J2785

== ENCOUNTER → 2021-09-08 10:53 | Outpatient (BNVA) | payer MEDICARE, OTHER, SELFPAY | PROVIDERS: PCP Family Medicine; Referring Provider Family Medicine; Visit Provider Specialist | DX: M25.552 Pain in left hip (principal); M16.12 Unilateral primary osteoarthritis, left hip | CPT/HCPCS: 73502 ==

== ENCOUNTER 2021-09-10 06:00 | Outpatient (RCR) | payer MEDICARE, OTHER, SELFPAY | END 2021-09-30 23:59 | disposition home or self-care (01) | LOC: APT 06:00 | PROVIDERS: Absent Provider Specialist; Family Provider Specialist; PCP Specialist; Referring Provider Specialist; Visit Provider Specialist | DX: S76.312D Strain of muscle, fascia and tendon of the posterior muscle group at thigh level, left thigh, subsequent encounter (principal); X58.XXXD Exposure to other specified factors, subsequent encounter | CPT/HCPCS: 97110; 97140; 97163 ==

== ENCOUNTER 2022-03-08 13:18 | Observation (INO) | payer MEDICARE, OTHER, SELFPAY ==
[2022-03-08] VITALS (8 sets, daily range): BP systolic 110–155; BP diastolic 56–75; PULSE 64–78; RESP 16–18; TEMP 36.6–36.8; O2SAT 92–99; BMI 30.2
--- NOTE | 2022-03-08 13:29 | W.ED.GIBLEED ---
HPI - GI Bleed General: Chief complaint: GI Bleed Stated complaint: GI BLEED Time Seen by Provider: 03/08/22 13:23 Source: patient Mode of arrival: EMS History of Present Illness: 72-year-old female presents emergency room with complaint of coffee-ground emesis that began overnight some mild abdominal cramping and discomfort. She is on Plavix she has a history of coronary disease and has previous angiography with stenting last that was several years ago. She has no significant abdominal pain she denies any hematochezia hematemesis or melena. He has not previously had a GI bleed requiring transfusion. MD complaint: coffee ground emesis Onset (ago): hour(s) Associated symptoms: Reports nausea, poor appetite and vomiting; Denies abdominal pain, chills, easy bruising, epistaxis, fever(s), headache(s), malaise, other bleeding, rash, syncope or weakness Treatments Prior to Arrival: none Review of Systems Const: Denies: fever(s), chills, fatigue or malaise ENMT: Denies: epistaxis Card: Denies: chest pain, palpitations or syncope Resp: Denies: dyspnea, productive cough or non-productive cough GI: Reports: nausea and vomiting; Denies: abdominal pain : Denies: flank pain, difficulty voiding, dysuria, urinary frequency or urinary urgency Skin/Breast: Denies: rash Neuro: Denies: headache(s) Emmanuel/Lymph: Denies: easy bruising PFS ED PFSH: Medical History Acquired hypothyroidism Bilateral carotid artery stenosis CAD (coronary artery disease) Depression History of common carotid artery stent placement History of NC (myocardial infarction) Hyperlipidemia Hypertension Insomnia Internal carotid artery stent present Shortness of breath Surgical History History of esophagogastroduodenoscopy (EGD) History of heart artery stent S/P cholecystectomy S/P knee replacement Family History Sister Cancer Mother Heart disease Hypertension Social History Smoking and tobacco status: never smoked Alcohol intake: current Alcohol intake frequency: 0-2 Drinks per Day Physical Exam Const: COMMON NORMALS: no acute distress GENERAL APPEARANCE: cooperative and comfortable ORIENTATION/CONSCIOUSNESS: Yes awake, Yes oriented to person, Yes oriented to place and Yes oriented to time HENMT: COMMON NORMALS: normocephalic, atraumatic and hearing grossly normal bilaterally HEAD & SCALP: normocephalic and atraumatic Resp: COMMON NORMALS: normal respiratory effort, No retractions, No use of accessory muscles and clear to auscultation bilaterally AUSCULTATION: clear to auscultation bilaterally Cardio: COMMON NORMALS: regular rate, regular rhythm and No murmurs present (Cardio) RATE: regular rate RHYTHM: regular rhythm GI: COMMON NORMALS: Soft to palpation and No hepatosplenomegaly present AUSCULTATION: Yes normoactive bowel sounds PALPATION: Yes Soft to palpation, No Tenderness to palpation present (GI), No Guarding due to palpation present (GI) and Yes No hepatosplenomegaly present Extremity: COMMON NORMALS: normal to inspection, capillary refill normal, no clubbing, cyanosis or edema, no calf tenderness and no pedal edema Neuro: SENSORIUM/ORIENTATION: Yes oriented to person, Yes oriented to place and Yes oriented to time Skin: COMMON NORMALS: no rashes or lesions noted GENERAL SKIN EXAM: no rashes or lesions noted Course Vital Signs: Vital signs: Vital Signs Temperature 98.0 F 03/09/22 17:07 Pulse Rate 71 03/09/22 17:07 Respiratory Rate 15 03/09/22 17:07 Blood Pressure 114/65 03/09/22 17:07 Pulse Oximetry 92 03/09/22 17:07 Oxygen Delivery Me thod 03/09/22 16:00 Oxygen Flow Rate 5 03/09/22 13:32 MDM - GI Bleed Medical Decision Making Admit for upper GI bleed with coffee-ground emesis. Hold Plavix discussed with hospitalist orders written Medical Records I reviewed the patient's medical records. Lab Data I reviewed the patient's lab results. : 03/09/22 05:08 03/09/22 05:08 Radiology Impressions Abdomen/Pelvis CT 03/08/22 13:38 IMPRESSION: 1. Fluid-filled distended distal esophagus with irregular submucosal enhancement extending into the stomach and duodenum compatible with distal esophagitis with gastroduodenitis. Small esophageal hiatal hernia. 2. Thickening of the GE junction with fluid. Recommend follow-up with endoscopy to exclude underlying lesion 3. Sigmoid diverticulosis. No definite evidence of acute diverticulitis. 4. Prior cholecystectomy. Notified All Singh DO at 03/08/2022 3:17 PM. Laboratory Results WBC 5.0 10^3/uL (4.0-10.0) 03/08/22 14:10 RBC 4.33 10^6/uL (4.1-5.3) 03/08/22 14:10 Hgb 13.3 g/dL (11.5-15.3) 03/08/22 14:10 Hct 41.1 % (37.0-47.0) 03/08/22 14:10 MCV 94.9 fl (81-99) 03/08/22 14:10 MCH 30.7 pg (28.0-34.0) 03/08/22 14:10 MCHC 32.4 g/dL (30.0-36.0) 03/08/22 14:10 RDW 13.7 % (12.1-15.1) 03/08/22 14:10 Plt Count 202 10^3/cmm (130-400) 03/08/22 14:10 MPV 10.9 fL (7.4-10.4) H 03/08/22 14:10 Neut % (Auto) 84.4 % 03/08/22 14:10 Lymph % (Auto) 8.0 % 03/08/22 14:10 [place] % (Auto) 6.6 % 03/08/22 14:10 Eos % (Auto) 0.2 % 03/08/22 14:10 Baso % (Auto) 0.4 % 03/08/22 14:10 Neut # (Auto) 4.20 10^3/uL (1.8-7.7) 03/08/22 14:10 Lymph # (Auto) 0.4 10^3/uL (0.8-4.8) L 03/08/22 14:10 [place] # (Auto) 0.3 10^3/uL (0.2-0.9) 03/08/22 14:10 Eos # (Auto) 0.0 10^3/uL (0.0-0.8) 03/08/22 14:10 Baso # (Auto) 0.0 10^3/uL (0.0-0.1) 03/08/22 14:10 Nucleated RBC % (auto) 0 % 03/08/22 14:10 Nucleated RBCs # 0.0 /100WBC 03/08/22 14:10 PT 13.10 SECONDS (12.1-14.9) 03/08/22 14:10 INR 0.96 (0.8-1.2) 03/08/22 14:10 APTT 29.7 SECONDS (23.9-36.7) 03/08/22 14:10 Sodium 142 mmol/L (136-145) 03/08/22 14:10 Potassium 3.5 mmol/L (3.5-5.1) 03/08/22 14:10 Chloride 104 mmol/L (98-107) 03/08/22 14:10 Carbon Dioxide 26 mmol/L (22-29) 03/08/22 14:10 Anion Gap 15.5 (5-19) 03/08/22 14:10 BUN 16 mg/dL (8-23) 03/08/22 14:10 Creatinine 0.7 mg/dL (0.5-0.9) 03/08/22 14:10 GFR Calculation Not Reportable 03/08/22 14:10 Glucose 120 mg/dL (65-115) H 03/08/22 14:10 Calculated Osmolality 296 mOsm/kg (285-295) H 03/08/22 14:10 Calcium 8.9 mg/dL (8.5-10.5) 03/08/22 14:10 Total Bilirubin 0.5 mg/dL (0.15-1.2) 03/08/22 14:10 AST 356 U/L (0-32) H 03/08/22 14:10 ALT 288 U/L (0-33) H 03/08/22 14:10 Alkaline Phosphatase 99 U/L (35-105) 03/08/22 14:10 Total Protein 6.5 g/dL (6.6-8.7) L 03/08/22 14:10 Albumin 4.0 g/dL (3.5-5.2) 03/08/22 14:10 Globulin 2.5 g/dL (1.3-4.6) 03/08/22 14:10 Urine Color Dark yellow (Yellow) 03/08/22 15:25 Urine Appearance Clear (CLEAR) 03/08/22 15:25 Urine pH 5 (5-7) 03/08/22 15:25 Ur Specific [place] 1.010 (1.005-1.030) 03/08/22 15:25 Urine Protein 1+ (Negative) H 03/08/22 15:25 Urine Glucose (UA) Norm (Normal) 03/08/22 15:25 Urine Ketones 1+ (Negative) H 03/08/22 15:25 Urine Blood 2+ (Negative) H 03/08/22 15:25 Urine Nitrate Negative (Negative) 03/08/22 15:25 Urine Bilirubin 1+ (Negative) H 03/08/22 15:25 Urine Urobilinogen 1 mg/dL (Negative) H 03/08/22 15:25 Ur Leukocyte Esterase 2+ (Negative) H 03/08/22 15:25 Urine RBC 5-10 /hpf (0-2) H 03/08/22 15:25 Urine WBC 25-40 /hpf (0-5) H 03/08/22 15:25 Ur Squamous Epith Cells 0-4 /hpf (0-5) H 03/08/22 15:25 Ur Transition Epith Cell 0-4 /hpf 03/08/22 15:25 Calcium Oxalate Crystal 55-80 /hpf H 03/08/22 15:25 Amorphous Sediment Not Reportable 03/08/22 15:25 Urine Bacteria None /hpf (NONE) 03/08/22 15:25 Fine Granular Casts 0-4 /lpf H 03/08/22 15:25 Discharge Plan Discharge Patient Disposition: Admitted As Inpatient Admit Provider: Ciarra Cam Clinical Impression: Upper gastrointestinal hemorrhage Condition: Stable Discharge Diet: GI Soft Discharge Activity: Resume usual activity Coding Level of Care Code ED Photographic Process Worker for Chg Fwd Exam Detailed
--- NOTE | 2022-03-08 13:38 | CT_ITS ---
WS: [id number] CT ABDOMEN PELVIS TECHNIQUE: Contrast-enhanced CT of the abdomen and pelvis with coronal and sagittal reformatted image s. CLINICAL INFORMATION: abd pain COMPARISON: DLP: 870.[address] scans at [facility] use at least one of these dose optimization techniques: automated e xposure control; mA and/or kV adjustment per patient size (includes targeted exams where dose is matc hed to clinical indication); or iterative reconstruction. FINDINGS: Small esophageal hiatal hernia. Fluid and mucosal thickening in the distal esophagus. Recommend furth er evaluation endoscopy to exclude underlying lesion. Mucosal enhancement in the distal esophagus ext ending into the stomach and duodenum compatible with gastroduodenitis and distal esophagitis. Prior cholecystectomy. Diffuse fatty infiltration liver. Mild physiologic prominence of the common bi le duct postcholecystectomy. Mild atrophy of the pancreas. Normal spleen. Celiac and SMA are patent. Moderate aortic calcification. Normal caliber abdominal aorta. Tiny fat-containing umbilical hernia. Adrenal glands are normal. Normal renal parenchymal enhancement . No hydronephrosis. A few sigmoid diverticuli. CT/CT abdomen pelvis w con* [id number] IMPRESSION: 1. Fluid-filled distended distal esophagus with irregular submucosal enhanceme nt extending into the stomach and duodenum compatible with distal esophagitis w ith gastroduodenitis. Small esophageal hiatal hernia. 2. Thickening of the GE junction with fluid. Recommend follow-up with endoscop y to exclude underlying lesion 3. Sigmoid diverticulosis. No definite evidence of acute diverticulitis. 4. Prior cholecystectomy. Notified All Singh DO at 03/08/2022 3:17 PM.
[2022-03-08 14:23] LABS: Basophils % 0.4 %; Eosinophils % 0.2 %; Hematocrit 41.1 % (37.0-47.0); Hemoglobin 13.3 g/dL (11.5-15.3); Lymphocytes # 0.4 10^3/uL (0.8-4.8); Mean Corpuscular HGB Conc 32.4 g/dL (30.0-36.0); Mean Corpuscular Hemoglobin 30.7 pg (28.0-34.0); Mean Corpuscular Volume 94.9 fl (81-99); Mean Platelet Volume 10.9 fL (7.4-10.4); Monocytes # 0.3 10^3/uL (0.2-0.9); Monocytes % 6.6 %; Neutrophils % 84.4 %; Nucleated Red Blood Cells % 0 %; Platelet Count 202 10^3/cmm (130-400); Red Blood Count 4.33 10^6/uL (4.1-5.3); Red Cell Distribution Width 13.7 % (12.1-15.1)
[2022-03-08 14:35] LABS: INR 0.96 (0.8-1.2)
[2022-03-08 14:36] LABS: Partial Thromboplastin Time 29.7 SECONDS (23.9-36.7)
[2022-03-08 14:41] LABS: Alanine Aminotransferase 288 U/L (0-33); Alkaline Phosphatase 99 U/L (35-105); Anion Gap 15.5 (5-19); Aspartate Amino Transferase 356 U/L (0-32); Blood Urea Nitrogen 16 mg/dL (8-23); Calcium 8.9 mg/dL (8.5-10.5); Carbon Dioxide 26 mmol/L (22-29); Chloride 104 mmol/L (98-107); Globulin 2.5 g/dL (1.3-4.6); Glucose 120 mg/dL (65-115); Osmolality Calculated 296 mOsm/kg (285-295); Potassium 3.5 mmol/L (3.5-5.1); Sodium 142 mmol/L (136-145); Total Bilirubin 0.5 mg/dL (0.15-1.2); Total Protein 6.5 g/dL (6.6-8.7)
[2022-03-08] MEDS: iohexol 350 mg/mL 100 mL Btl IV (14:54)
[2022-03-08] MEDS: pantoprazole 40 mg SDV 80 MG IVP (16:03)
[2022-03-08 16:34] LABS: Add Urine Microscopic? YES; Bilirubin Urine 1+ (Negative); Blood Urine 2+ (Negative); Glucose Urine UA Norm (Normal); Ketones Urine 1+ (Negative); Leukocyte Esterase Urine 2+ (Negative); Nitrate Urine Negative (Negative); Protein Urine 1+ (Negative); Urine Appearance Clear (CLEAR); Urine Color Dark Yellow (Yellow); Urobilinogen Urine 1 mg/dL (Negative); pH Urine 5 (5-7)
[2022-03-08 16:35] LABS: Calcium Oxalate Crystals Urine 55-80 /hpf; Fine Granular Casts Urine 0-4 /lpf; Squamous Epithelial Cell Urine 0-4 /hpf (0-5); Transitional Epi Cells Urine 0-4 /hpf; WBC Urine 25-40 /hpf (0-5)
[2022-03-08 16:36] LABS: Add Urine Culture? No
--- NOTE | 2022-03-08 17:28 | PM.HP ---
Providers/Chief Complaint Admitting Physician: Ciarra Cam MD Primary Care Provider: Minnie Lopez MD Chief Complaint: GI BLEED History of Present Illness Adela Spears is a 72 year old female with PMH as noted below presenting today with mutliple episodes of coffee ground emesis that started last night. No past h/o similar episodes. No h/o gastritis or ulceration. No geovanni. Last BM today which was soft brown. Patient has a h/o taking Ibuprofen , total up to 800 mg daily for chronic pain daily over the last 2 years. Does not take PPI or h2 blockers alongside. Also on ASA and Plavix for a h/o cardiac stents 2016, carotid stents 2017. Reports h/o drinking large glass of ana on Monday, but otherwise does not drink daily. CT abdomen today shows dilated esophagus with lower esophageal thickening extending into the stomach. She has lost weight, but has been actively trying to do so by modifications to her diet. No changes in bowel habits. Hb at 13.3, hemodynamically stable. Review of Systems General: Reports: 10 or more systems reviewed and unremarkable except in HPI and below Const: Denies: fever(s), chills or body aches Eyes: Denies: change in vision, blurry vision or photophobia ENMT: Reports: hoarseness; Denies: throat pain, enlarged tonsils, odynophagia or nasal congestion Card: Denies: chest pain, palpitations, irregular heart rhythm, edema, swelling of feet/ankles, lightheadedness, pre-syncope, dyspnea on exertion or orthopnea Resp: Denies: dyspnea, productive cough, non-productive cough, wheezing, stridor, pain on inspiration, change in phlegm color, hemoptysis or chest congestion GI: Denies: abdominal pain, nausea, vomiting, hematemesis, coffee ground emesis, dysphagia, heartburn, diarrhea, constipation, GI cramping, change in stool character, hematochezia or melena : Denies: flank pain, difficulty voiding, dysuria, urinary frequency, urinary urgency, urinary hesitancy or hematuria Musc: Denies: neck pain, back pain, extremity pain, joint swelling, joint warmth or deformity Neuro: Denies: headache(s), numbness in extremities, weakness in extremities, sensory changes, difficulty walking, frequent falls, dizziness, vertigo, behavioral changes, Slurred speech present or seizure-like activity Psych: Denies: anxiety, depression, suicidal ideation or homicidal ideation Endo: Denies: polyuria, polydipsia, tired all the time, cold intolerance or hot flashes Emmanuel/Lymph: Denies: easy bruising or easy bleeding Medications/Allergies Home Medications Medication Instructions Recorded Confirmed Last Taken Type aspirin 81 mg tablet,delayed 81 mg PO BEDTIME 10/01/19 03/08/22 03/07/22 History release (Adult Aspirin Regimen) atorvastatin 20 mg tablet 20 mg PO BEDTIME 10/01/19 03/08/22 03/07/22 History calcium carbonate 600 mg calcium 600 mg PO DAILY 10/01/19 03/08/22 Unknown History (1,500 mg) tablet (Calcium) clopidogrel 75 mg tablet (Plavix) 75 mg PO BEDTIME 10/01/19 03/08/22 03/07/22 History biotin 1 cap PO DAILY 09/23/20 03/08/22 Unknown History bisacodyl 5 mg tablet,delayed 15 mg PO BEDTIME 09/23/20 03/08/22 03/07/22 History release (Gentle Laxative (bisacodyl)) coenzyme Q10 100 mg capsule 200 mg PO BEDTIME 09/23/20 03/08/22 03/07/22 History (CoQ-10) epinephrine 0.3 mg/0.3 mL 0.3 mg (0.3 mL) IM Q10M PRN 09/23/20 03/08/22 Unknown Rx injection, auto-injector (EpiPen) hypersensitivity reaction or anaphylaxis #2 ea lorazepam 1 mg tablet 1 mg PO BEDTIME 09/23/20 03/08/22 03/07/22 History acetaminophen 500 mg tablet 1,000 mg PO Q6H PRN Pain 03/08/22 03/08/22 Unknown History cholecalciferol (vitamin D3) 25 25 mcg PO BEDTIME 03/08/22 03/08/22 03/07/22 History mcg (1,000 unit) tablet (Vitamin D3) hydrocodone 7.5 mg-acetaminophen 1 tab PO Q4H PRN Pain 03/08/22 03/08/22 Unknown History 325 mg tablet ibuprofen 200 mg tablet 400 - 600 mg PO Q6H PRN Pain 03/08/22 03/08/22 Unknown History levothyroxine 25 mcg tablet 25 mcg PO QAM 03/08/22 03/08/22 03/07/22 History (Euthyrox) metoprolol succinate 25 mg 12.5 mg PO BEDTIME 03/08/22 03/08/22 03/07/22 History tablet,extended release 24 hr nrzwchhyikhh-[id number] 1 tab PO BEDTIME 03/08/22 03/08/22 03/07/22 History tablet (Multivitamin 50 Plus) nitroglycerin 0.4 mg sublingual 0.4 mg sublingual Q5M PRN Chest 03/08/22 03/08/22 Unknown History tablet (Nitrostat) Pain Allergies Allergy/AdvReac Type Severity Reaction Status Date / Time No Known Allergies Allergy Verified 03/08/22 14:41 PFSH Acute PFSH: Medical History (Updated 03/08/22 @ 22:10 by Ciarra Cam MD) Acquired hypothyroidism CAD (coronary artery disease) Depression History of common carotid artery stent placement History of [place] (myocardial infarction) Hyperlipidemia Hypertension Insomnia Shortness of breath Surgical History (Updated 03/08/22 @ 22:10 by Ciarra Cam MD) History of heart artery stent S/P cholecystectomy S/P knee replacement Family History Sister Cancer Mother Heart disease Hypertension Social History Alcohol intake: current Alcohol intake frequency: 0-2 Drinks per Day Vitals/I&O/Wt Last Vital Signs Temp 98.2 F 03/08/22 13:42 Pulse 73 03/08/22 16:11 Resp 18 03/08/22 13:42 BP 114/75 03/08/22 16:11 Pulse Ox 92 03/08/22 16:11 O2 Del Method 03/08/22 16:11 O2 Flow Rate 2 03/08/22 13:42 Physical Exam Narrative: General: No acute distress, AO x3 HEENT: PERRLA, pupils bilaterally equal and reactive, pallors not present Chest: Normal vesicular breath sounds, no added sounds, equal good air entry bilaterally CVS: S1-S2 regular, no murmurs, no tachycardia, no gallops, no rubs Abdomen: Soft, nontender, no organomegaly, bowel sounds present Neuro: No focal deficits, no facial deformity, AO x3, power 5/5 in all limbs Data : 03/08/22 14:10 03/08/22 14:10 Other Labs: Radiology Impressions Abdomen/Pelvis CT 03/08/22 13:38 IMPRESSION: 1. Fluid-filled distended distal esophagus with irregular submucosal enhancement extending into the stomach and duodenum compatible with distal esophagitis with gastroduodenitis. Small esophageal hiatal hernia. 2. Thickening of the GE junction with fluid. Recommend follow-up with endoscopy to exclude underlying lesion 3. Sigmoid diverticulosis. No definite evidence of acute diverticulitis. 4. Prior cholecystectomy. Notified All Singh DO at 03/08/2022 3:17 PM. Laboratory Results WBC 5.0 10^3/uL (4.0-10.0) 03/08/22 14:10 RBC 4.33 10^6/uL (4.1-5.3) 03/08/22 14:10 Hgb 13.3 g/dL (11.5-15.3) 03/08/22 14:10 Hct 41.1 % (37.0-47.0) 03/08/22 14:10 MCV 94.9 fl (81-99) 03/08/22 14:10 MCH 30.7 pg (28.0-34.0) 03/08/22 14:10 MCHC 32.4 g/dL (30.0-36.0) 03/08/22 14:10 RDW 13.7 % (12.1-15.1) 03/08/22 14:10 Plt Count 202 10^3/cmm (130-400) 03/08/22 14:10 MPV 10.9 fL (7.4-10.4) H 03/08/22 14:10 Neut % (Auto) 84.4 % 03/08/22 14:10 Lymph % (Auto) 8.0 % 03/08/22 14:10 Moody % (Auto) 6.6 % 03/08/22 14:10 Eos % (Auto) 0.2 % 03/08/22 14:10 Baso % (Auto) 0.4 % 03/08/22 14:10 Neut # (Auto) 4.20 10^3/uL (1.8-7.7) 03/08/22 14:10 Lymph # (Auto) 0.4 10^3/uL (0.8-4.8) L 03/08/22 14:10 Moody # (Auto) 0.3 10^3/uL (0.2-0.9) 03/08/22 14:10 Eos # (Auto) 0.0 10^3/uL (0.0-0.8) 03/08/22 14:10 Baso # (Auto) 0.0 10^3/uL (0.0-0.1) 03/08/22 14:10 Nucleated RBC % (auto) 0 % 03/08/22 14:10 Nucleated RBCs # 0.0 /100WBC 03/08/22 14:10 PT 13.10 SECONDS (12.1-14.9) 03/08/22 14:10 INR 0.96 (0.8-1.2) 03/08/22 14:10 APTT 29.7 SECONDS (23.9-36.7) 03/08/22 14:10 Sodium 142 mmol/L (136-145) 03/08/22 14:10 Potassium 3.5 mmol/L (3.5-5.1) 03/08/22 14:10 Chloride 104 mmol/L (98-107) 03/08/22 14:10 Carbon Dioxide 26 mmol/L (22-29) 03/08/22 14:10 Anion Gap 15.5 (5-19) 03/08/22 14:10 BUN 16 mg/dL (8-23) 03/08/22 14:10 Creatinine 0.7 mg/dL (0.5-0.9) 03/08/22 14:10 GFR Calculation Not Reportable 03/08/22 14:10 Glucose 120 mg/dL (65-115) H 03/08/22 14:10 Calculated Osmolality 296 mOsm/kg (285-295) H 03/08/22 14:10 Calcium 8.9 mg/dL (8.5-10.5) 03/08/22 14:10 Total Bilirubin 0.5 mg/dL (0.15-1.2) 03/08/22 14:10 AST 356 U/L (0-32) H 03/08/22 14:10 ALT 288 U/L (0-33) H 03/08/22 14:10 Alkaline Phosphatase 99 U/L (35-105) 03/08/22 14:10 Total Protein 6.5 g/dL (6.6-8.7) L 03/08/22 14:10 Albumin 4.0 g/dL (3.5-5.2) 03/08/22 14:10 Globulin 2.5 g/dL (1.3-4.6) 03/08/22 14:10 Urine Color Dark yellow (Yellow) 03/08/22 15:25 Urine Appearance Clear (CLEAR) 03/08/22 15:25 Urine pH 5 (5-7) 03/08/22 15:25 Ur Specific [place] 1.010 (1.005-1.030) 03/08/22 15:25 Urine Protein 1+ (Negative) H 03/08/22 15:25 Urine Glucose (UA) Norm (Normal) 03/08/22 15:25 Urine Ketones 1+ (Negative) H 03/08/22 15:25 Urine Blood 2+ (Negative) H 03/08/22 15:25 Urine Nitrate Negative (Negative) 03/08/22 15:25 Urine Bilirubin 1+ (Negative) H 03/08/22 15:25 Urine Urobilinogen 1 mg/dL (Negative) H 03/08/22 15:25 Ur Leukocyte Esterase 2+ (Negative) H 03/08/22 15:25 Urine RBC 5-10 /hpf (0-2) H 03/08/22 15:25 Urine WBC 25-40 /hpf (0-5) H 03/08/22 15:25 Ur Squamous Epith Cells 0-4 /hpf (0-5) H 03/08/22 15:25 Ur Transition Epith Cell 0-4 /hpf 03/08/22 15:25 Calcium Oxalate Crystal 55-80 /hpf H 03/08/22 15:25 Amorphous Sediment Not Reportable 03/08/22 15:25 Urine Bacteria None /hpf (NONE) 03/08/22 15:25 Fine Granular Casts 0-4 /lpf H 03/08/22 15:25 A&P Assessment and plan (1) GI bleed: Admit to med/surg in view of GI bleed/hematemesis Received protonix 80mg iv in ER, start 8mg/hr iv infusion NPO, will plan for likely UGIE in am suspect that patient may have NSAID induced gastritis. Mass will need to be excluded given CT findings. Hb stable, hemodynamically stable currently Holding ASA and Plavix. Cardiac stenting dates back to 2016. 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
[2022-03-08] MEDS: pantoprazole 40 MG in sodium chloride 0.9% (plus) 100 ML 20 MG IV (18:08)
[2022-03-08] MEDS: sodium chloride 0.9% 1,000 ML 75 ML IV (18:09)
[2022-03-08] MEDS: morphine 4 mg/mL SDV 1 mL 2 MG IVP (18:09)
[2022-03-08] MEDS: ondansetron 2 mg/ML SDV 2 mL 4 MG IVP ×2 (19:58→21:01)
[2022-03-08] MEDS: LORazepam 1 mg Tablet PO (21:03)
[2022-03-08] MEDS: metoprolol succinate ER (24 HR) 25 mg Tablet 12.5 MG PO (21:03)
[2022-03-09] VITALS (8 sets, daily range): BP systolic 113–139; BP diastolic 61–72; PULSE 65–79; RESP 14–18; TEMP 36.7–37.1; O2SAT 92–97
[2022-03-09 05:33] LABS: Basophils % 0.6 %; Eosinophils # 0.1 10^3/uL (0.0-0.8); Eosinophils % 2.6 %; Hematocrit 36.5 % (37.0-47.0); Hemoglobin 11.8 g/dL (11.5-15.3); Lymphocytes # 1.5 10^3/uL (0.8-4.8); Lymphocytes % 30.6 %; Mean Corpuscular HGB Conc 32.3 g/dL (30.0-36.0); Mean Corpuscular Hemoglobin 31.2 pg (28.0-34.0); Mean Corpuscular Volume 96.6 fl (81-99); Monocytes # 0.5 10^3/uL (0.2-0.9); Monocytes % 9.5 %; Neutrophils # 2.81 10^3/uL (1.8-7.7); Neutrophils % 56.5 %; Nucleated Red Blood Cells % 0 %; Platelet Count 195 10^3/cmm (130-400); Red Blood Count 3.78 10^6/uL (4.1-5.3); Red Cell Distribution Width 13.9 % (12.1-15.1)
[2022-03-09 05:51] LABS: Alanine Aminotransferase 191 U/L (0-33); Albumin Level 3.3 g/dL (3.5-5.2); Alkaline Phosphatase 83 U/L (35-105); Anion Gap 11.6 (5-19); Aspartate Amino Transferase 148 U/L (0-32); Blood Urea Nitrogen 12 mg/dL (8-23); Calcium 8.2 mg/dL (8.5-10.5); Carbon Dioxide 26 mmol/L (22-29); Chloride 106 mmol/L (98-107); Globulin 2.4 g/dL (1.3-4.6); Glucose 83 mg/dL (65-115); Osmolality Calculated 289 mOsm/kg (285-295); Potassium 3.6 mmol/L (3.5-5.1); Sodium 140 mmol/L (136-145); Total Bilirubin 0.4 mg/dL (0.15-1.2); Total Protein 5.7 g/dL (6.6-8.7)
[2022-03-09] MEDS: levothyroxine 25 mcg Tablet PO (07:04)
[2022-03-09] MEDS: D5-NS 0.45% + KCL 20 mEq 20 MEQ/1,000 ML BAG 100 MEQ IV (08:53)
--- NOTE | 2022-03-09 11:09 | P.CONIM_ITS ---
Providers/Reason For Consult Consulting Physician/Specialty*: Dr. Jitendra Osorio, DO Reason for Consult*: Hematemesis Attending Physician: Carolina Johnson MD Primary Care Provider: Minnie Lopez MD History of Present Illness History of Present Illness Adela Spears is a 72 year old female who presented with multiple episodes of coffee-ground emesis. CT shows esophageal dilation with distal esophageal thickening. Patient does not take any PPIs or H2 blockers. Takes up to 800 mg of ibuprofen a day for pain. She reports feeling sick to her stomach but not really having any abdominal pain. She does not think she had any bad food to eat. She denies any sick contacts or history of recent travel. Review of Systems General: Reports: 10 or more systems reviewed and unremarkable except in HPI and below Medications/Allergies Home Medications Medication Instructions Recorded Confirmed Last Taken Type aspirin 81 mg tablet,delayed 81 mg PO BEDTIME 10/01/19 03/08/22 03/07/22 History release (Adult Aspirin Regimen) atorvastatin 20 mg tablet 20 mg PO BEDTIME 10/01/19 03/08/22 03/07/22 History calcium carbonate 600 mg calcium 600 mg PO DAILY 10/01/19 03/08/22 Unknown History (1,500 mg) tablet (Calcium) clopidogrel 75 mg tablet (Plavix) 75 mg PO BEDTIME 10/01/19 03/08/22 03/07/22 History biotin 1 cap PO DAILY 09/23/20 03/08/22 Unknown History bisacodyl 5 mg tablet,delayed 15 mg PO BEDTIME 09/23/20 03/08/22 03/07/22 History release (Gentle Laxative (bisacodyl)) coenzyme Q10 100 mg capsule 200 mg PO BEDTIME 09/23/20 03/08/22 03/07/22 History (CoQ-10) epinephrine 0.3 mg/0.3 mL 0.3 mg (0.3 mL) IM Q10M PRN 09/23/20 03/08/22 Unknown Rx injection, auto-injector (EpiPen) hypersensitivity reaction or anaphylaxis #2 ea lorazepam 1 mg tablet 1 mg PO BEDTIME 09/23/20 03/08/22 03/07/22 History acetaminophen 500 mg tablet 1,000 mg PO Q6H PRN Pain 03/08/22 03/08/22 Unknown History cholecalciferol (vitamin D3) 25 25 mcg PO BEDTIME 03/08/22 03/08/22 03/07/22 History mcg (1,000 unit) tablet (Vitamin D3) hydrocodone 7.5 mg-acetaminophen 1 tab PO Q4H PRN Pain 03/08/22 03/08/22 Unknown History 325 mg tablet ibuprofen 200 mg tablet 400 - 600 mg PO Q6H PRN Pain 03/08/22 03/08/22 Unknown History levothyroxine 25 mcg tablet 25 mcg PO QAM 03/08/22 03/08/22 03/07/22 History (Euthyrox) metoprolol succinate 25 mg 12.5 mg PO BEDTIME 03/08/22 03/08/22 03/07/22 History tablet,extended release 24 hr [id number]-[id number]-[id number] 1 tab PO BEDTIME 03/08/22 03/08/22 03/07/22 History tablet (Multivitamin 50 Plus) nitroglycerin 0.4 mg sublingual 0.4 mg sublingual Q5M PRN Chest 03/08/22 03/08/22 Unknown History tablet (Nitrostat) Pain Allergies Allergy/AdvReac Type Severity Reaction Status Date / Time No Known Allergies Allergy Verified 03/08/22 14:41 Current Medications Generic Name Dose Route Start Last Admin Trade Name Freq PRN Reason Stop Dose Admin Sodium Chloride 1,000 mls @ 75 mls/hr 03/08/22 17:30 03/09/22 08:54 Sodium Chloride 0.9% IV Not Given .[id number] TERRY Potassium Chloride/Dextrose/Sod Cl 20 meq in 1,000 mls @ 100 mls/hr 03/08/22 20:59 03/09/22 08:53 D5-Ns 0.45% + Kcl 20 Meq IV 100 mls/hr .Q10H TERRY Administration Levothyroxine Sodium 25 mcg 03/09/22 06:00 03/09/22 07:04 Levothyroxine 25 Mcg Tablet PO 25 mcg QAM TERRY Administration Lorazepam 1 mg 03/08/22 21:00 03/08/22 21:03 Lorazepam 1 Mg Tablet PO 1 mg BEDTIME TERRY Administration Metoprolol Succinate 12.5 mg 03/08/22 21:00 03/08/22 21:03 Metoprolol Succinate Er (24 Hr) 25 Mg Tablet PO 12.5 mg BEDTIME TERRY Administration Morphine Sulfate 2 mg 03/08/22 17:25 03/08/22 18:09 Morphine 4 Mg/Ml Sdv 1 Ml IVP 2 mg Q4H PRN Administration SEVERE PAIN Ondansetron HCl 4 mg 03/08/22 17:25 03/08/22 19:58 Ondansetron 2 Mg/Ml Sdv 2 Ml IVP 4 mg Q8H PRN Administration vomiting, or N/V if npo PFSH Acute PFSH: Medical History Acquired hypothyroidism CAD (coronary artery disease) Depression History of common carotid artery stent placement History of [place] (myocardial infarction) Hyperlipidemia Hypertension Insomnia Shortness of breath Surgical History History of heart artery stent S/P cholecystectomy S/P knee replacement Family History Sister Cancer Mother Heart disease Hypertension Social History Alcohol intake: current Alcohol intake frequency: 0-2 Drinks per Day Vitals/I&O/Wt Last Vital Signs Temp 98.0 F 03/09/22 08:00 Pulse 65 03/09/22 08:00 Resp 16 03/09/22 08:00 BP 125/69 03/09/22 08:00 Pulse Ox 94 03/09/22 08:00 O2 Del Method 03/09/22 08:00 O2 Flow Rate 2 03/08/22 23:55 03/08/22 03/09/22 03/09/22 22:59 06:59 14:59 Intake Total 100 / 100 1000 / 1000 Balance 100 / 100 1000 / 1000 Weight last 48 hrs Weight 182 lb Physical Exam Narrative: General : Patient is well developed , no acute distress, oriented x3 Head : Normal cephalic, a-traumatic. Ears : Pinnae and external canal are normal. Hearing is normal. Eyes : PERRLA, Sclera and injection are normal. No conjunctival discharge. Nose : Mucous membranes are without erythema. Throat : buccal mucosa is normal, gums are without significant recession or hypertrophy. Lungs : Equal chest rise bilaterally, no use of accessory muscles, trachea is midline. Cor : Rate and rhythm are normal. Abdomen : Soft, ND, NT, no g/r/m, reducible incisional hernia Extremities : No ed reducibleema, no cyanosis or clubbing, dorsalis pedis pulses are present bilaterally, non-tender to palpation of calves. Upper extremities are normal bilaterally. Back : non-tender to palpation, no CVA tenderness. Neuro : CN II - XII intact, Upper and lower extremities have equal and full strength Data : 03/09/22 05:08 03/09/22 05:08 A&P Assessment and plan (1) GI bleed: Status: Acute (2) Incisional hernia: Status: Acute Plan EGD The risks and benefits of the procedure, including bleeding, infection, intestinal perforation requiring surgery, missed lesion, or explained to the patient. He is understanding of the risks and wishes to proceed. 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
--- NOTE | 2022-03-09 13:06 | ANES.PREANE2 ---
Pre-Anesthetic Assessment Height/Weight: Height 1.65 m Weight 82.554 kg Temp Pulse Resp BP Pulse Ox O2 Del Method O2 Flow Rate 98.7 F 67 18 139/72 93 2 03/09/22 12:03/09/22 12:03/09/22 12:03/09/22 12:03/09/22 12:06 03/09/22 12:03/08/22 23:55 Preop Diagnosis: coffee ground emesis Operation Date: 03/09/22 11:30 Proposed Procedures p EGD(Not Applicable) - Jitendra Osorio DO Familial anesthetic complications: none Last intake: 03/07 1900 ice chips 1500 03/08. Social Alcohol (few times per month.) and No tobacco Airway Submandibular: within normal limits Cervical ROM: within normal limits Mallampati: Class II Dentition: partials Pulmonary Shortness of Breath and None reported CV/HEM Coronary Artery Disease, Hypertension and Myocardial Infarction (2014, heart stents) bilateral carotid artery stents placed 2015. None reported Hepatic None reported GI GI Bleed Metabolic Hyperlipidemia, Morbid Obesity and Thyroid Disease (hypothyroidism) [facility] [place] None reported Neuropsych Anxiety and Depression Anesthetic Plan ASA status: 3 Anesthesia: MAC Medications/Allergies Home Medications Medication Instructions Recorded Confirmed Last Taken Type aspirin 81 mg tablet,delayed 81 mg PO BEDTIME 10/01/19 03/08/22 03/07/22 History release (Adult Aspirin Regimen) atorvastatin 20 mg tablet 20 mg PO BEDTIME 10/01/19 03/08/22 03/07/22 History calcium carbonate 600 mg calcium 600 mg PO DAILY 10/01/19 03/08/22 Unknown History (1,500 mg) tablet (Calcium) clopidogrel 75 mg tablet (Plavix) 75 mg PO BEDTIME 10/01/19 03/08/22 03/07/22 History biotin 1 cap PO DAILY 09/23/20 03/08/22 Unknown History bisacodyl 5 mg tablet,delayed 15 mg PO BEDTIME 09/23/20 03/08/22 03/07/22 History release (Gentle Laxative (bisacodyl)) coenzyme Q10 100 mg capsule 200 mg PO BEDTIME 09/23/20 03/08/22 03/07/22 History (CoQ-10) epinephrine 0.3 mg/0.3 mL 0.3 mg (0.3 mL) IM Q10M PRN 09/23/20 03/08/22 Unknown Rx injection, auto-injector (EpiPen) hypersensitivity reaction or anaphylaxis #2 ea lorazepam 1 mg tablet 1 mg PO BEDTIME 09/23/20 03/08/22 03/07/22 History acetaminophen 500 mg tablet 1,000 mg PO Q6H PRN Pain 03/08/22 03/08/22 Unknown History cholecalciferol (vitamin D3) 25 25 mcg PO BEDTIME 03/08/22 03/08/22 03/07/22 History mcg (1,000 unit) tablet (Vitamin D3) hydrocodone 7.5 mg-acetaminophen 1 tab PO Q4H PRN Pain 03/08/22 03/08/22 Unknown History 325 mg tablet ibuprofen 200 mg tablet 400 - 600 mg PO Q6H PRN Pain 03/08/22 03/08/22 Unknown History levothyroxine 25 mcg tablet 25 mcg PO QAM 03/08/22 03/08/22 03/07/22 History (Euthyrox) metoprolol succinate 25 mg 12.5 mg PO BEDTIME 03/08/22 03/08/22 03/07/22 History tablet,extended release 24 hr cyrtikgietuh-[id number]-[id number] 1 tab PO BEDTIME 03/08/22 03/08/22 03/07/22 History tablet (Multivitamin 50 Plus) nitroglycerin 0.4 mg sublingual 0.4 mg sublingual Q5M PRN Chest 03/08/22 03/08/22 Unknown History tablet (Nitrostat) Pain Allergies Allergy/AdvReac Type Severity Reaction Status Date / Time No Known Allergies Allergy Verified 03/08/22 14:41 Current Medications Generic Name Dose Route Start Last Admin Trade Name Freq PRN Reason Stop Dose Admin Sodium Chloride 1,000 mls @ 75 mls/hr 03/08/22 17:30 03/09/22 08:54 Sodium Chloride 0.9% IV Not Given .[id number] TERRY Potassium Chloride/Dextrose/Sod Cl 20 meq in 1,000 mls @ 100 mls/hr 03/08/22 20:59 03/09/22 08:53 D5-Ns 0.45% + Kcl 20 Meq IV 100 mls/hr .Q10H TERRY Administration Levothyroxine Sodium 25 mcg 03/09/22 06:00 03/09/22 07:04 Levothyroxine 25 Mcg Tablet PO 25 mcg QAM TERRY Administration Lorazepam 1 mg 03/08/22 21:00 03/08/22 21:03 Lorazepam 1 Mg Tablet PO 1 mg BEDTIME TERRY Administration Metoprolol Succinate 12.5 mg 03/08/22 21:00 03/08/22 21:03 Metoprolol Succinate Er (24 Hr) 25 Mg Tablet PO 12.5 mg BEDTIME TERRY Administration Morphine Sulfate 2 mg 03/08/22 17:25 03/08/22 18:09 Morphine 4 Mg/Ml Sdv 1 Ml IVP 2 mg Q4H PRN Administration SEVERE PAIN Ondansetron HCl 4 mg 03/08/22 17:25 03/08/22 19:58 Ondansetron 2 Mg/Ml Sdv 2 Ml IVP 4 mg Q8H PRN Administration vomiting, or N/V if npo PFSH Anesthesia Medical History Acquired hypothyroidism CAD (coronary artery disease) Depression History of common carotid artery stent placement History of [place] (myocardial infarction) Hyperlipidemia Hypertension Insomnia Shortness of breath Surgical History History of heart artery stent S/P cholecystectomy S/P knee replacement Family History Sister Cancer Mother Heart disease Hypertension Social History Alcohol intake: current Alcohol intake frequency: 0-2 Drinks per Day Data Anesthesia : 03/09/22 05:08 03/09/22 05:08 Short CBC 03/08/22 03/09/22 Range/Units 14:10 05:08 WBC 5.0 5.0 (4.0-10.0) 10^3/uL Hgb 13.3 11.8 (11.5-15.3) g/dL Hct 41.1 36.5 L (37.0-47.0) % MCV 94.9 96.6 (81-99) fl Plt Count 202 195 (130-400) 10^3/cmm Neut % (Auto) 84.4 56.5 % Neut # (Auto) 4.20 2.81 (1.8-7.7) 10^3/uL BMP 03/08/22 03/09/22 14:10 05:08 Sodium 142 140 Potassium 3.5 3.6 Chloride 104 106 Carbon Dioxide 26 26 BUN 16 12 Creatinine 0.7 0.7 Glucose 120 H 83 Calcium 8.9 8.2 L Liver Function 03/08/22 03/09/22 Range/Units 14:10 05:08 Total Bilirubin 0.5 0.4 (0.15-1.2) mg/dL AST 356 H 148 H (0-32) U/L ALT 288 H 191 H (0-33) U/L Alkaline Phosphatase 99 83 (35-105) U/L Albumin 4.0 3.3 L (3.5-5.2) g/dL Urine 03/08/22 Range/Units 15:25 Urine Color Dark yellow (Yellow) Urine Appearance Clear (CLEAR) Urine pH 5 (5-7) Ur Specific [place] 1.010 (1.005-1.030) Urine Protein 1+ H (Negative) Urine Glucose (UA) Norm (Normal) Urine Ketones 1+ H (Negative) Urine Nitrate Negative (Negative) Urine Bilirubin 1+ H (Negative) Ur Leukocyte Esterase 2+ H (Negative) Urine RBC 5-10 H (0-2) /hpf Urine WBC 25-40 H (0-5) /hpf Coags 03/08/22 14:10 PT 13.10 INR 0.96 APTT 29.7 Cardiac Studies: Echocardiogram 01/06/21 Sestamibi Stress Test (Cardiology) 01/06/21
[2022-03-09] MEDS: sodium chloride 0.9% 1,000 ML 30 ML IV (13:11)
[2022-03-09] MEDS: pantoprazole 40 mg SDV IVP (14:38)
--- NOTE | 2022-03-09 16:31 | P.DS_ITS ---
Discharge Providers Date of Admission: 03/08/22 16:49 Date of Discharge: March 09, 2022 Attending Provider at Admission: Ciarra Cam MD Attending Provider at Discharge: Carolina Johnson MD Primary Care Provider: Dr. Stuart Pan Diagnoses at Discharge Discharge Diagnosis (1) GI bleed: Status: Acute Qualifiers: GI bleed type/associated pathology: gastric ulcer Qualified Code(s): K 25.4 - Chronic or unspecified gastric ulcer with hemorrhage (2) Gastric ulcer: Status: Acute Qualifiers: Gastric ulcer chronicity: acute Gastric ulcer complication status: without hemorrhage or perforation Qualified Code(s): K25.3 - Acute gastric ulcer without hemorrhage or perforation (3) Gastritis determined by endoscopy: Status: Acute (4) NSAID induced gastritis: Status: Acute (5) Schatzki's ring: Status: Acute (6) Incisional hernia: Status: Acute (7) Hypertension: Status: Chronic Qualifiers: Hypertension type: essential hypertension Qualified Code(s): I10 - Essential (primary) hypertension (8) CAD (coronary artery disease): Status: Chronic Qualifiers: Coronary Disease-Associated Artery/Lesion type: [place] artery [place] vs. transplanted heart: [place] heart Associated angina: without angina Qualified Code(s): I25.10 - Atherosclerotic heart disease of [place] coronary a rtery without angina pectoris Reason for Visit Reason for Visit: GI BLEED Brief History: Adela Spears is a 72 year old female with PMH as noted below presenting today with mutliple episodes of coffee ground emesis that started last night. No past h/o similar episodes. No h/o gastritis or ulceration. No geovanni. Last BM today which was soft brown. Patient has a h/o taking Ibuprofen , total up to 800 mg daily for chronic pain daily over the last 2 years. Does not take PPI or h2 blockers alongside. Also on ASA and Plavix for a h/o cardiac stents 2016, carotid stents 2017. Reports h/o drinking large glass of ana on Monday, but otherwise does not drink daily. CT abdomen today shows dilated esophagus with lower esophageal thickening extending into the stomach. She has lost weight, but has been actively trying to do so by modifications to her diet. No changes in bowel habits. Hb at 13.3, hemodynamically stable. Hospital Course Hospital Course Coffee ground emesis at presentation. EDG performed by Dr Osorio showed gastritis, NSAID-asscoiated, with gastric ulcers. No active bleeding seen at time of endoscopy. PPI and carafate prescibed. Unfortunately there is a national shortage of Carafate and the prescription for Carafate was not able to be filled. Patient will be on twice daily PPI for 6 weeks followed by daily thereafter for 6 weeks. Biopsies were collected and will be followed up by Dr Osorio. As appropriate coverage for H. pylori will be added at follow-up. NSAID association with gastritis was reviewed with patient and her . She was informed that psre-ujx-uczgiex acetaminophen was the only safe fwku-mvx-ikhxhbq pain medication presently. Pain is primarily muscular in nature. We will do a trial of methocarbamol as an alternative for when the muscular pain becomes more severe. She is to follow-up with her primary care provider to ensure that she has adequate pain control and can review alternatives at follow-up if methocarbamol not helping. At the time of discharge patient was awake and alert, vital signs were stable and she was felt safe for discharge and outpatient follow-up. Patient and her had questions which were answered. Information on new medications and findings on endoscopy were provided. In terms of antiplatelet therapy, currently holding aspirin and will continue Plavix given history of cardiac and carotid stents. 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 Dominguez patient already has a scheduled appointment with next week. Discharge Data Studies Completed and Pending Completed Studies During Hospitalization Category Date Time Status CT abdomen pelvis w con* [id number] Stat Cat Scan 03/08/22 13:38 Completed Pending at discharge Category Date Time Status Gastricult Occult BLD Stat Lab 03/08/22 15:09 Ordered Pathology: Surgical [PTH] Routine Pth 03/09/22 13:29 Received Radiology Impressions Abdomen/Pelvis CT 03/08/22 13:38 IMPRESSION: 1. Fluid-filled distended distal esophagus with irregular submucosal enhancement extending into the stomach and duodenum compatible with distal esophagitis with gastroduodenitis. Small esophageal hiatal hernia. 2. Thickening of the GE junction with fluid. Recommend follow-up with endoscopy to exclude underlying lesion 3. Sigmoid diverticulosis. No definite evidence of acute diverticulitis. 4. Prior cholecystectomy. Notified All Singh DO at 03/08/2022 3:17 PM. Laboratory Results WBC 5.0 10^3/uL (4.0-10.0) 03/09/22 05:08 RBC 3.78 10^6/uL (4.1-5.3) L 03/09/22 05:08 Hgb 11.8 g/dL (11.5-15.3) 03/09/22 05:08 Hct 36.5 % (37.0-47.0) L 03/09/22 05:08 MCV 96.6 fl (81-99) 03/09/22 05:08 MCH 31.2 pg (28.0-34.0) 03/09/22 05:08 MCHC 32.3 g/dL (30.0-36.0) 03/09/22 05:08 RDW 13.9 % (12.1-15.1) 03/09/22 05:08 Plt Count 195 10^3/cmm (130-400) 03/09/22 05:08 MPV 11.0 fL (7.4-10.4) H 03/09/22 05:08 Neut % (Auto) 56.5 % 03/09/22 05:08 Lymph % (Auto) 30.6 % 03/09/22 05:08 Menard % (Auto) 9.5 % 03/09/22 05:08 Eos % (Auto) 2.6 % 03/09/22 05:08 Baso % (Auto) 0.6 % 03/09/22 05:08 Neut # (Auto) 2.81 10^3/uL (1.8-7.7) 03/09/22 05:08 Lymph # (Auto) 1.5 10^3/uL (0.8-4.8) 03/09/22 05:08 Menard # (Auto) 0.5 10^3/uL (0.2-0.9) 03/09/22 05:08 Eos # (Auto) 0.1 10^3/uL (0.0-0.8) 03/09/22 05:08 Baso # (Auto) 0.0 10^3/uL (0.0-0.1) 03/09/22 05:08 Nucleated RBC % (auto) 0 % 03/09/22 05:08 Nucleated RBCs # 0.0 /100WBC 03/09/22 05:08 PT 13.10 SECONDS (12.1-14.9) 03/08/22 14:10 INR 0.96 (0.8-1.2) 03/08/22 14:10 APTT 29.7 SECONDS (23.9-36.7) 03/08/22 14:10 Sodium 140 mmol/L (136-145) 03/09/22 05:08 Potassium 3.6 mmol/L (3.5-5.1) 03/09/22 05:08 Chloride 106 mmol/L (98-107) 03/09/22 05:08 Carbon Dioxide 26 mmol/L (22-29) 03/09/22 05:08 Anion Gap 11.6 (5-19) 03/09/22 05:08 BUN 12 mg/dL (8-23) 03/09/22 05:08 Creatinine 0.7 mg/dL (0.5-0.9) 03/09/22 05:08 GFR Calculation Not Reportable 03/09/22 05:08 Glucose 83 mg/dL (65-115) 03/09/22 05:08 Calculated Osmolality 289 mOsm/kg (285-295) 03/09/22 05:08 Calcium 8.2 mg/dL (8.5-10.5) L 03/09/22 05:08 Total Bilirubin 0.4 mg/dL (0.15-1.2) 03/09/22 05:08 AST 148 U/L (0-32) H 03/09/22 05:08 ALT 191 U/L (0-33) H 03/09/22 05:08 Alkaline Phosphatase 83 U/L (35-105) 03/09/22 05:08 Total Protein 5.7 g/dL (6.6-8.7) L 03/09/22 05:08 Albumin 3.3 g/dL (3.5-5.2) L 03/09/22 05:08 Globulin 2.4 g/dL (1.3-4.6) 03/09/22 05:08 Urine Color Dark yellow (Yellow) 03/08/22 15:25 Urine Appearance Clear (CLEAR) 03/08/22 15:25 Urine pH 5 (5-7) 03/08/22 15:25 Ur Specific [place] 1.010 (1.005-1.030) 03/08/22 15:25 Urine Protein 1+ (Negative) H 03/08/22 15:25 Urine Glucose (UA) Norm (Normal) 03/08/22 15:25 Urine Ketones 1+ (Negative) H 03/08/22 15:25 Urine Blood 2+ (Negative) H 03/08/22 15:25 Urine Nitrate Negative (Negative) 03/08/22 15:25 Urine Bilirubin 1+ (Negative) H 03/08/22 15:25 Urine Urobilinogen 1 mg/dL (Negative) H 03/08/22 15:25 Ur Leukocyte Esterase 2+ (Negative) H 03/08/22 15:25 Urine RBC 5-10 /hpf (0-2) H 03/08/22 15:25 Urine WBC 25-40 /hpf (0-5) H 03/08/22 15:25 Ur Squamous Epith Cells 0-4 /hpf (0-5) H 03/08/22 15:25 Ur Transition Epith Cell 0-4 /hpf 03/08/22 15:25 Calcium Oxalate Crystal 55-80 /hpf H 03/08/22 15:25 Amorphous Sediment Not Reportable 03/08/22 15:25 Urine Bacteria None /hpf (NONE) 03/08/22 15:25 Fine Granular Casts 0-4 /lpf H 03/08/22 15:25 Procedures Performed EGD Vitals Last Vital Signs Temp 98.0 F 03/09/22 16:00 Pulse 71 03/09/22 16:00 Resp 15 03/09/22 16:00 BP 114/65 03/09/22 16:00 Pulse Ox 92 03/09/22 16:00 O2 Del Method 03/09/22 16:00 O2 Flow Rate 5 03/09/22 13:32 Discharge Plan Discharge Patient Disposition: Home Condition: Stable Prescriptions: New sucralfate 1 gram Tablet 1 g PO AC&BEDTIME Qty: 160 0RF pantoprazole 40 mg tablet,delayed release (DR/EC) 40 mg PO BID Qty: 60 1RF Rx Instructions: take twice per day for 6 weeks then once per day for 6 weeks methocarbamol 500 mg tablet 500 mg PO Q8H Qty: 30 0RF Continued atorvastatin 20 mg tablet 20 mg PO BEDTIME calcium carbonate [Calcium 600] 600 mg calcium (1,500 mg) tablet 600 mg PO DAILY bisacodyl [Gentle Laxative (bisacodyl)] 5 mg Tablet,Delayed Release (Dr/Ec) 15 mg PO BEDTIME coenzyme Q10 [CoQ-10] 100 mg Capsule 200 mg PO BEDTIME biotin 1 cap PO DAILY epinephrine [EpiPen] 0.3 mg/0.3 mL auto-injector 0.3 mg IM Q10M PRN (Reason: hypersensitivity reaction or anaphylaxis) Qty: 2 0RF Rx Instructions: for 2 doses acetaminophen 500 mg Tablet 1,000 mg PO Q6H PRN (Reason: Pain) hydrocodone-acetaminophen 7.5-325 mg tablet 1 tab PO Q4H PRN (Reason: Pain) Nitrostat 0.4 mg Tablet, Sublingual 0.4 mg SUBLINGUAL Q5M PRN (Reason: Chest Pain) Rx Instructions: do not exceed 3 doses per episode Multivitamin 50 Plus Tablet 1 tab PO BEDTIME Vitamin D3 25 mcg (1,000 unit) Tablet 25 mcg PO BEDTIME metoprolol succinate 25 mg tablet extended release 24 hr 12.5 mg PO BEDTIME Discontinued aspirin [Adult Aspirin Regimen] 81 mg tablet,delayed release (DR/EC) 81 mg PO BEDTIME ibuprofen 200 mg Tablet 400 - 600 mg PO Q6H PRN (Reason: Pain) No Action clopidogrel [Plavix] 75 mg tablet 75 mg PO BEDTIME Qty: 90 3RF Euthyrox 25 mcg tablet 25 mcg PO QAM Qty: 90 1RF lorazepam 1 mg tablet 1 mg PO BEDTIME Qty: 30 5RF Discharge Orders: Discharge Order (Routine); Ordered 03/09/22 Ordered By: Carolina Johnson Referrals: Jitendra Osorio DO [Physician] - 03/23/22 1:35 pm Stuart Pan DO [Staff Physician] - 1 week (Please call morning to schedule a hospital follow up; NSAIDS stopped due to gastritis and ulceration on EGD, muscle relaxer added - need eval for adequate pain control without nsaids) Jennifer Dominguez MD [Physician] - 03/16/22 1:45 pm (As already scheduled) Discharge Diet: GI Soft Discharge Activity: Resume usual activity Patient Instructions: Sucralfate (By mouth), Methocarbamol (By mouth), Pantoprazole (By mouth), GI Bleeding, Peptic Ulcer (DC), Gastritis (DC), GI Discharge Instructions, Opioid Safety Activity Restrictions/Additional Instructions: You presented with a complaint of coffee-ground emesis. He had some thickening noted on imaging study at what is called the gastroesophageal junction. EGD or upper GI endoscopy was done by Dr. Osorio. This revealed a mild Schatzki's ring in the lower third of the esophagus. In the entire stomach there was severe striped gastritis. There was no active mucosal bleeding. Multiple superficial unspecified ulcers were visualized. No abnormalities were noted in the duodenum. She was taken from the antrum and will be sent for further study. In the meantime, recommendations are to stop ibuprofen and all over-the- counter pain medications except for acetaminophen/Tylenol. Maximum Tylenol a day is 3 to 4 g total from all sources. In place of the ibuprofen I have written a prescription for some Robaxin to see if it provides you with any relief. As we discussed you will follow-up with Dr. Pan to evaluate if pain is adequately controlled. You may continue taking the as needed hydrocodone's if necessary for severe pain. In addition to adjustments to pain medicines, you have been prescribed a proton pump inhibitor or stomach medication along with Carafate which is a coating medication to help treat the abnormalities identified in your neck. You will follow-up with Dr. Osorio in approximately 2 weeks regarding biopsy results. You may require additional treatment depending on what they show. Your initial hemoglobin was 13. It did drop some to 11 but you were hemodynamically stable and with no signs of active bleeding on EGD felt stable for discharge home. Discharge Attestations Time Spent in Discharge Care*: greater than 30 min Specific Discharge Activities: educating patient, educating and/or supporting family/caregiver, discussing with pcp/other providers, documenting/other paperwork and evaluating patient/reviewing data Quality Metrics Clinical Quality Measures [ No reported AMI, CVA or VTE this stay] Coding Level of Care Code Acute Chg FW DC note Diagnoses GI bleed K25.4 GI bleed type/associated pathology: gastric ulcer Gastric ulcer K25.3 Gastric ulcer chronicity: acute Gastric ulcer complication status: without hemorrhage or perforation Gastritis determined by endoscopy K29.70 NSAID induced gastritis K29.60; T39.395A Schatzki's ring K22.2 Incisional hernia K43.2 Hypertension I10 Hypertension type: essential hypertension CAD (coronary artery disease) I25.10 Coronary Disease-Associated Artery/Lesion type: [place] artery [place] vs. transplanted heart: [place] heart Associated angina: without angina
--- NOTE | 2022-03-10 08:58 | ANE.PACU2 ---
Inpatient post-anesthesia follow up: Airway intact: Yes Vital signs: Temperature 98.0 F Pulse Rate 71 Respiratory Rate 15 Blood Pressure 114/65 Pulse Oximetry 92 Oxygen Delivery Me thod Room Air Oxygen Flow Rate 5 Fraction of Inspir ed Oxygen Hydration adequate: Yes Nausea and vomiting: No Pain level: 2 Mental status: Baseline
== END 2022-03-09 17:22 | disposition home or self-care (01) ==
LOC: ER 18:11 → MEDSURG 19:02
PROVIDERS: Surgery; Admitting Provider Student in an Organized Health Care Education/Training Program; Emergency Provider Family Medicine; PCP Specialist; Visit Provider Hospitalist
PROC: 0DJ08ZZ Inspection of Upper Intestinal Tract, Via Natural or Artificial Opening Endoscopic (ICD-10-PCS; CPT 43235; principal; 2022-03-09 11:30)
DX: K25.4 Chronic or unspecified gastric ulcer with hemorrhage (principal); K25.3 Acute gastric ulcer without hemorrhage or perforation; K22.2 Esophageal obstruction; K43.2 Incisional hernia without obstruction or gangrene; K25.9 Gastric ulcer, unspecified as acute or chronic, without hemorrhage or perforation; K29.50 Unspecified chronic gastritis without bleeding; B96.81 Helicobacter pylori [H. pylori] as the cause of diseases classified elsewhere; K92.2 Gastrointestinal hemorrhage, unspecified; Z79.1 Long term (current) use of non-steroidal anti-inflammatories (NSAID); G89.29 Other chronic pain; Z79.82 Long term (current) use of aspirin; Z79.02 Long term (current) use of antithrombotics/antiplatelets; Z95.5 Presence of coronary angioplasty implant and graft; I25.10 Atherosclerotic heart disease of native coronary artery without angina pectoris; F32.A Depression, unspecified; I25.2 Old myocardial infarction; E78.5 Hyperlipidemia, unspecified; I10 Essential (primary) hypertension; Z82.49 Family history of ischemic heart disease and other diseases of the circulatory system
CPT/HCPCS: 36415; 43239; 74177; 80053; 81001; 85025; 85610; 85730; 88305; 96374; 96375; 96376; 99285; C9113; G0378; J2270; J2405; J2704; J7030; Q9967

== ENCOUNTER → 2022-03-16 14:50 | Outpatient (BNVA) | payer MEDICARE, SELFPAY | PROVIDERS: PCP Family Medicine; Visit Provider Internal Medicine Cardiovascular Disease | DX: I25.10 Atherosclerotic heart disease of native coronary artery without angina pectoris (principal); I65.23 Occlusion and stenosis of bilateral carotid arteries; I10 Essential (primary) hypertension; E78.49 Other hyperlipidemia; E03.9 Hypothyroidism, unspecified; K29.70 Gastritis, unspecified, without bleeding; B96.81 Helicobacter pylori [H. pylori] as the cause of diseases classified elsewhere; K25.3 Acute gastric ulcer without hemorrhage or perforation | CPT/HCPCS: 36415; 85025; 99214 ==

== ENCOUNTER → 2022-03-18 10:39 | Outpatient (BNVA) | payer MEDICARE, SELFPAY | PROVIDERS: PCP Family Medicine; Visit Provider Surgery | DX: Z09 Encounter for follow-up examination after completed treatment for conditions other than malignant neoplasm (principal); K29.70 Gastritis, unspecified, without bleeding; B96.81 Helicobacter pylori [H. pylori] as the cause of diseases classified elsewhere | CPT/HCPCS: 99213 ==

== ENCOUNTER → 2022-07-05 13:11 | Outpatient (BNVA) | payer MEDICARE, SELFPAY | PROVIDERS: PCP Family Medicine; Visit Provider Orthopaedic Surgery | DX: M51.36 Other intervertebral disc degeneration, lumbar region (principal); M48.061 Spinal stenosis, lumbar region without neurogenic claudication; M81.0 Age-related osteoporosis without current pathological fracture; M47.814 Spondylosis without myelopathy or radiculopathy, thoracic region; M41.55 Other secondary scoliosis, thoracolumbar region | CPT/HCPCS: 72070; 72110; 99204 ==

== ENCOUNTER 2022-07-25 09:19 | Outpatient (CLI) | payer MEDICARE, SELFPAY ==
--- NOTE | 2022-07-25 09:30 | MR_ITS ---
WS: [id number] MRI THORACIC SPINE noncontrast. HISTORY: back pain COMPARISON: Radiographs 07/05/2022 TECHNIQUE: Multiplanar sequences are performed in sagittal and axial planes. Very minimal mild curvature thoracic spine to the RIGHT. Otherwise the posterior vertebral body align ment is normal. No acute fractures or marrow edema. Signal within the thoracic cord is normal. No cor d atrophy or enlargement. Normal tapering with the conus ending at L1. T1-2: Normal. T2-3: Mild LEFT facet arthritis. T3-4: Small central disc protrusion. No high-grade stenosis. T4-5: Small central disc protrusion and disc bulging and facet arthritis. No stenosis. T5-6: Normal. T6-7: Normal. T7-8: Mild disc bulging. T8-9: Mild facet arthritis. T9-10: Mild annular disc bulge. Mild facet arthritis. T10-11: Mild facet arthritis. T11-12: Very small central disc protrusion. MR/MR thoracic spin wo con* [id number] IMPRESSION: 1. No acute thoracic spine fracture. 2. Mild degenerative disc disease and facet arthritis as described above. Ther e is no evidence for significant central or foraminal stenosis or cord compress ion.
--- NOTE | 2022-07-25 10:15 | MR_ITS ---
WS: [id number] MRI LUMBAR SPINE NONCONTRAST HISTORY: M54.9 - Dorsalgia, unspecified COMPARISON: None available. TECHNIQUE: Sagittal and axial multisequence imaging is submitted. Mild LEFT curvature lumbar spine. No acute fractures or marrow edema. Disc spaces are mildly narrowed and desiccated, most significant at L2-3. Conus terminates normally at L1. L1-L2: Very mild disc bulging. No stenosis. L2-L3: Moderate annular disc bulging with mild ligamentum flavum and facet arthritis. Mild encroachme nt upon the central canal and subarticular recesses. Mild bilateral subarticular recess stenosis. L3-L4: Mild disc bulging and facet arthritis. Very mild foraminal encroachment. No high-grade stenosi s. L4-L5: Mild annular disc bulge with ligamentum flavum and facet arthritis. Disc encroaches into the s ubarticular recesses bilaterally. Slightly greater disc contacting the traversing RIGHT L5 nerve root . Mild bilateral subarticular recess and foraminal stenosis. L5-S1: Mild annular disc bulge. LEFT foraminal shallow disc protrusion with slight contact on the LEF T L5 nerve root. Mild facet arthritis. Paravertebral soft tissues are negative. MR/MR lumbar spine wo con* [id number] IMPRESSION: 1. No high-grade central or foraminal stenosis. 2. Mild bilateral subarticular recess encroachment at L2-3. 3. Very minimal foraminal encroachment at L3-4. 4. Disc encroachment into the subarticular recesses bilaterally at L4-5 with s lightly greater contact on the traversing RIGHT L5 nerve root. Mild bilateral s ubarticular recess and foraminal stenosis. 5. Shallow LEFT foraminal disc protrusion at L5-S1 with minimal contact on the LEFT L5 nerve root.
== END 2022-07-25 09:20 | disposition home or self-care (01) ==
PROVIDERS: PCP Family Medicine; Visit Provider Orthopaedic Surgery
DX: M54.9 Dorsalgia, unspecified (principal)
CPT/HCPCS: 72146; 72148

== ENCOUNTER 2022-08-01 10:18 | Outpatient (CLI) | payer MEDICARE, SELFPAY ==
--- NOTE | 2022-08-01 12:00 | USCV_ITS ---
Spears Adela Age: 72 Gender: F : 1950 Exam Date: 08/01/2022 10:48 Ordering Phys: Jennifer Dominguez MD ([email or web address]) Technologist: TAMMY Exam Location: [facility] – [place] Indication: Stenosis S/P Stents Risk Factors: Previous Vascular Surgery: Right Brachial BP: / Left Brachial BP: / Right Left Velocity (cm/s) Spectral Plaque Velocity (cm/s) Spectral Plaque Syst/Diast Broadening Syst/Diast Broadening 72.80/ 22.10 Prox CCA 87.80 / 24.90 Hetro 56.70/ 19.40 Mid CCA 62.90 / 17.90 Hetro 56.70/ 19.40 Hetro Distal CCA 71.50 / 18.60 Hetro 66.80/ 23.30 Hetro Prox ICA 57.80 / 19.70 Hetro 69.50/ 19.80 Hetro Mid ICA 52.60 / 19.70 Hetro 82.70/ 32.00 Hetro Distal ICA 46.00 / 14.50 Hetro 167.80 Hetro ECA 149.90 Hetro 1.14 ICA/CCA 0.66 Antegrade Vertebral Antegrade 38.50/ 8.50 cm/s 61.70/ 19.80 cm/s Tri Subclavian Tri 65.30 53.60 FINDINGS Comparison: none available. No significant elevation of systolic or diastolic velocities. Mild calcified plaque and intimal thickening is diffuse. Bilateral stents are patent. Antegrade vertebral artery. CONCLUSIONS Bilateral ICA stenosis less than 50%. Mild carotid plaque. Patent bilateral stents. Dr. Carey Garza DO (Electronically Signed) Final Date: 01 August 2022 14:48 S
== END 2022-08-01 10:19 | disposition home or self-care (01) ==
PROVIDERS: PCP Family Medicine; Visit Provider Internal Medicine Cardiovascular Disease
DX: M41.50 Other secondary scoliosis, site unspecified (principal); M47.816 Spondylosis without myelopathy or radiculopathy, lumbar region; M79.604 Pain in right leg; M79.605 Pain in left leg; I65.23 Occlusion and stenosis of bilateral carotid arteries; Z95.828 Presence of other vascular implants and grafts
CPT/HCPCS: 93880; 99205

== ENCOUNTER → 2022-08-16 13:47 | Outpatient (BNVA) | payer MEDICARE, SELFPAY | PROVIDERS: PCP Family Medicine; Visit Provider Anesthesiology Pain Medicine | DX: M54.16 Radiculopathy, lumbar region (principal) | CPT/HCPCS: 64493; 64494; 64495; J3490 ==

== ENCOUNTER → 2022-08-30 12:53 | Outpatient (BNVA) | payer MEDICARE, SELFPAY | PROVIDERS: PCP Family Medicine; Visit Provider Anesthesiology Pain Medicine | DX: M47.816 Spondylosis without myelopathy or radiculopathy, lumbar region (principal) | CPT/HCPCS: 64493; 64494; 64495 ==

== ENCOUNTER → 2022-09-07 15:33 | Outpatient (BNVA) | payer MEDICARE, SELFPAY | PROVIDERS: PCP Family Medicine; Visit Provider Internal Medicine Cardiovascular Disease | DX: I25.10 Atherosclerotic heart disease of native coronary artery without angina pectoris (principal); E78.49 Other hyperlipidemia; I10 Essential (primary) hypertension; E03.9 Hypothyroidism, unspecified; I65.23 Occlusion and stenosis of bilateral carotid arteries; B96.81 Helicobacter pylori [H. pylori] as the cause of diseases classified elsewhere; K27.9 Peptic ulcer, site unspecified, unspecified as acute or chronic, without hemorrhage or perforation | CPT/HCPCS: 99214 ==

== ENCOUNTER → 2022-09-13 11:27 | Outpatient (BNVA) | payer MEDICARE, SELFPAY | PROVIDERS: PCP Family Medicine; Visit Provider Surgery | DX: K21.9 Gastro-esophageal reflux disease without esophagitis (principal) | CPT/HCPCS: 99213 ==

== ENCOUNTER → 2022-09-27 10:43 | Outpatient (BNVA) | payer MEDICARE, SELFPAY | PROVIDERS: PCP Family Medicine; Visit Provider Anesthesiology Pain Medicine | DX: M47.816 Spondylosis without myelopathy or radiculopathy, lumbar region (principal); M41.50 Other secondary scoliosis, site unspecified; M79.604 Pain in right leg; M79.605 Pain in left leg | CPT/HCPCS: 99214 ==

== ENCOUNTER → 2022-10-12 14:32 | Outpatient (BNVA) | payer MEDICARE, SELFPAY | PROVIDERS: PCP Family Medicine; Visit Provider Anesthesiology Pain Medicine | DX: M47.816 Spondylosis without myelopathy or radiculopathy, lumbar region (principal) | CPT/HCPCS: 64635; 64636; J1030 ==

== ENCOUNTER → 2023-08-16 10:47 | Outpatient (BNVA) | payer MEDICARE, SELFPAY | PROVIDERS: PCP Internal Medicine; Visit Provider Internal Medicine Cardiovascular Disease | DX: I10 Essential (primary) hypertension (principal); E78.49 Other hyperlipidemia; I25.10 Atherosclerotic heart disease of native coronary artery without angina pectoris; I65.23 Occlusion and stenosis of bilateral carotid arteries; E66.9 Obesity, unspecified; Z68.29 Body mass index [BMI] 29.0-29.9, adult | CPT/HCPCS: 99214 ==

== ENCOUNTER → 2023-12-13 15:07 | Outpatient (BNVA) | payer MEDICARE, SELFPAY | PROVIDERS: PCP Internal Medicine; Visit Provider Nurse Practitioner Family | DX: D48.5 Neoplasm of uncertain behavior of skin (principal); L82.0 Inflamed seborrheic keratosis; L30.4 Erythema intertrigo; L73.8 Other specified follicular disorders; D22.5 Melanocytic nevi of trunk | CPT/HCPCS: 11102; 17110; 99214 ==

== ENCOUNTER → 2023-12-25 14:34 | Outpatient (BNVA) | payer MEDICARE, SELFPAY | PROVIDERS: PCP Internal Medicine; Visit Provider Nurse Practitioner Family | DX: L30.4 Erythema intertrigo (principal); S20.102A Unspecified superficial injuries of breast, left breast, initial encounter; X58.XXXA Exposure to other specified factors, initial encounter | CPT/HCPCS: 99214 ==

== ENCOUNTER 2024-07-02 11:00 | Outpatient (CLI) | payer MEDICARE, SELFPAY ==
--- NOTE | 2024-07-02 11:15 | CTR_ITS ---
PROCEDURE INFORMATION: Exam: CT Abdomen And Pelvis With Contrast Exam date and time: 07/02/2024 12:53 PM Age: 74 years old Clinical indication: Abdominal pain; Localized; Right lower quadrant (rlq); Prior surgery; Surgery date: 6+ months; Surgery type: Gb, hyst, appy; Patient HX: Right lower quad pain x 6 months, constipation; Additional info: Lower abdominal pain TECHNIQUE: Imaging protocol: Computed tomography of the abdomen and pelvis with contrast. Radiation optimization: All CT scans at this facility use at least one of these dose optimization techniques: automated exposure control; mA and/or kV adjustment per patient size (includes targeted exams where dose is matched to clinical indication); or iterative reconstruction. Contrast material: OMNI 350; Contrast volume: 100 ml; Contrast route: INTRAVENOUS (IV); COMPARISON: CT abdomen pelvis w con* [id number] 03/08/2022 2:51 PM RADIATION DOSE METRICS: Total DLP (mGy-cm): 772.74 FINDINGS: Lungs: The included portions of the lung bases are clear. Coronary arteries: There is coronary artery calcification and probable coronary artery stents. Diaphragm: There is a small hiatal hernia. Liver: There are no focal liver lesions. The liver is mildly enlarged and appears mildly fatty infiltrated without focal liver lesion. Gallbladder and biliary ducts: Patient has undergone previous cholecystectomy. There is no biliary ductal dilatation. Pancreas: Pancreas is unremarkable without mass or ductal dilatation. Spleen: The spleen is unremarkable. Adrenal glands: There are no adrenal lesions. Kidneys and ureters: There a small nonobstructing stone in the upper pole of the left kidney. There is a prominent stone in the left renal pelvis measuring 1.1 x 0.6 x 1.0 cm. There is minimal fullness of the left renal pelvis around this stone but it is not causing obstruction and the calices are not dilated. There are tiny low-density lesions in both kidneys likely cysts but too small to accurately characterize. There are no ureteral calculi. Stomach and bowel: There is a duodenal diverticulum. The bowel-gas pattern is not obstructed. There is a ysdwhutk-kc-waomp amount of stool suggesting mild constipation. Mildly dilated small bowel loops may be secondary to the ogandbhr-oc-ibfzy amount of stool in the colon or may indicate an adynamic ileus. Appendix: The appendix is not identified and by history, it is surgically absent Intraperitoneal space: Unremarkable. No free air. No significant fluid collection. Vasculature: There are atherosclerotic changes in the abdominal aorta. No abdominal aortic aneurysm. Lymph nodes: Unremarkable. No enlarged lymph nodes. Urinary bladder: The bladder is unremarkable. Reproductive: Patient is status post hysterectomy. Bones/joints: There are degenerative changes in the spine hips and sacroiliac joints. Soft tissues: Patient has a small Bochdalek's hernia on the left containing only fat. There is a small umbilical hernia containing only fat. CT/CT abdomen pelvis w con* [id number] IMPRESSION: 1. Status post cholecystectomy. Negative for biliary ductal dilatation 2. Status post hysterectomy 3. By history, patient is status post appendectomy 4. Fairly large amount of stool in the colon suggesting constipation. Mildly dilated small bowel loops which may be secondary to the large amount of stool in the colon or may indicate an adynamic ileus 5. Small nonobstructing stone upper pole left kidney. Larger stone left renal pelvis not causing obstruction at this time. Negative for ureteral calculi. Negative for hydronephrosis. Tiny low-density lesions kidneys likely cysts but too small to accurately characterize 6. Mild hepatomegaly. Mild fatty infiltration liver 7. Small hiatal hernia 8. Coronary artery calcification and probable coronary artery stent 9. Very small umbilical hernia containing only. COMMENTS: Consistent with the [employer]'s Incidental Findings Committee white paper (J Am Tino Radiol 2018): Any incidental renal lesion less than 1 cm or classified as too small to characterize, or any incidental cystic renal lesion characterized as simple-appearing, is likely benign. No follow-up imaging is recommended for these lesions per consensus recommendations based on imaging criteria.
[2024-07-02 12:54] LABS: Blood Urea Nitrogen 14 mg/dL (8-23)
[2024-07-02] MEDS: iohexol 350 mg/mL 500 mL Btl (per mL) IV (13:00)
[2024-07-02] MEDS: iohexol 350 mg/mL 500 mL Btl (per mL) PO (13:00)
== END 2024-07-02 11:06 | disposition home or self-care (01) ==
PROVIDERS: Radiology Neuroradiology; PCP Family Medicine; Visit Provider Family Medicine
DX: R10.31 Right lower quadrant pain (principal); Z90.49 Acquired absence of other specified parts of digestive tract; Z90.710 Acquired absence of both cervix and uterus; Z98.890 Other specified postprocedural states; N20.0 Calculus of kidney; R16.0 Hepatomegaly, not elsewhere classified; K76.0 Fatty (change of) liver, not elsewhere classified; K44.9 Diaphragmatic hernia without obstruction or gangrene; I25.10 Atherosclerotic heart disease of native coronary artery without angina pectoris; K42.9 Umbilical hernia without obstruction or gangrene; K57.10 Diverticulosis of small intestine without perforation or abscess without bleeding; I70.0 Atherosclerosis of aorta; M47.819 Spondylosis without myelopathy or radiculopathy, site unspecified; K46.9 Unspecified abdominal hernia without obstruction or gangrene
CPT/HCPCS: 74177; 82565; 84520

== ENCOUNTER 2024-11-17 23:36 | Emergency (ER) | payer MEDICARE, SELFPAY ==
[2024-11-17 23:38] VITALS: BP 143/78; PULSE 85; RESP 16; TEMP 36.5; O2SAT 98; BMI 30.4
--- NOTE | 2024-11-17 23:44 | CTR_ITS ---
PROCEDURE INFORMATION: Exam: CT Head Without Contrast Exam date and time: 11/18/2024 12:33 AM Age: 74 years old Clinical indication: Injury or trauma; Fall; Blunt trauma (contusions or hematomas); Patient fell face first at home. C/O head pain with small lac and contusion to RT eyebrow. Anticoagulated. ; Additional info: Head inj TECHNIQUE: Imaging protocol: Computed tomography of the head without contrast. Radiation optimization: All CT scans at this facility use at least one of these dose optimization techniques: automated exposure control; mA and/or kV adjustment per patient size (includes targeted exams where dose is matched to clinical indication); or iterative reconstruction. COMPARISON: No relevant prior studies available. RADIATION DOSE METRICS: Total DLP (mGy-cm): 1052.78 FINDINGS: Brain: No acute intracranial hemorrhage. No acute territorial region of [place] dedifferentiation. No extra-axial collection. No mass effect or midline shift. Mild burden of nonspecific white matter hypoattenuation, most commonly sequela of chronic microvascular ischemic change. Generalized parenchymal volume loss. Cerebral ventricles: No acute hydrocephalus. Paranasal sinuses: Visualized sinuses are well-aerated. No fluid levels. Mastoid air cells: Visualized mastoid air cells are well aerated. Orbital cavities: No acute abnormality of the visualized orbits. Bones: No acute calvarial fracture. Soft tissues: Mild right supraorbital contusion. CT/CT head wo con* [id number] IMPRESSION: No acute intracranial hemorrhage or acute calvarial fracture.
--- NOTE | 2024-11-18 00:30 | CTR_ITS ---
PROCEDURE INFORMATION: Exam: CT Cervical Spine Without Contrast Exam date and time: 11/18/2024 12:36 AM Age: 74 years old Clinical indication: Injury or trauma; Fall; Blunt trauma; Prior surgery; Surgery date: 6+ months; Surgery type: Bilat carotid stents; Patient fell face first at home. C/O head pain with small lac and contusion to RT eyebrow. Anticoagulated. TECHNIQUE: Imaging protocol: Computed tomography of the cervical spine without contrast. Radiation optimization: All CT scans at this facility use at least one of these dose optimization techniques: automated exposure control; mA and/or kV adjustment per patient size (includes targeted exams where dose is matched to clinical indication); or iterative reconstruction. COMPARISON: CT head wo con* [id number] 11/18/2024 12:33 AM RADIATION DOSE METRICS: Total DLP (mGy-cm): 422.2 FINDINGS: Bones: Craniocervical and facet alignment is preserved. No acute appearing vertebral body compression deformity. Cervical spondylosis, worst at C5-C6 and C6-C7 with severe bilateral neural foraminal stenosis. No severe spinal canal stenosis. Lungs: Imaged lung apices are unremarkable. Vasculature: Bilateral carotid stents. Soft tissues: Unremarkable. CT/CT cervical spin wo con* [id number] IMPRESSION: No acute fracture or traumatic malalignment.
--- NOTE | 2024-11-18 00:31 | XRR_ITS ---
PROCEDURE INFORMATION: Exam: XR Left Hand Exam date and time: 11/18/2024 12:41 AM Age: 74 years old Clinical indication: Injury or trauma; Blunt trauma (contusions or hematomas); Left; Patient fell face first at home using hand to help brace fall. C/O bilateral hand pain. ; Additional info: Fall, hand injury TECHNIQUE: Imaging protocol: Radiologic exam of the left hand. Views: 3 or more views. COMPARISON: No relevant prior studies available. FINDINGS: Bones/joints: No fracture or dislocation. Degenerative joint space narrowing in the interphalangeal joints. Soft tissues: Normal. XR/XR hand LT min 3V* [id number] IMPRESSION: No acute bony injury in the left hand.
--- NOTE | 2024-11-18 00:31 | XRR_ITS ---
PROCEDURE INFORMATION: Exam: XR Right Knee Exam date and time: 11/18/2024 12:36 AM Age: 74 years old Clinical indication: Injury or trauma; Fall; Blunt trauma; Right; Patient fell face first at home. C/O RT knee pain. ; Additional info: Fall, knee injury TECHNIQUE: Imaging protocol: Radiologic exam of the right knee. Views: 3 views. COMPARISON: No relevant prior studies available. FINDINGS: Bones/joints: No fracture or dislocation. Soft tissues: Vascular calcification in the lower leg and popliteal region. XR/XR knee RT 3V* [id number] IMPRESSION: No acute findings.
--- NOTE | 2024-11-18 00:31 | XRR_ITS ---
PROCEDURE INFORMATION: Exam: XR Right Hand Exam date and time: 11/18/2024 12:43 AM Age: 74 years old Clinical indication: Injury or trauma; Blunt trauma (contusions or hematomas); Right; Patient fell face first at home using hand to help brace fall. C/O bilateral hand pain. ; Additional info: Fall, hand injury TECHNIQUE: Imaging protocol: Radiologic exam of the right hand. Views: 3 or more views. COMPARISON: No relevant prior studies available. FINDINGS: Bones/joints: No fracture or dislocation. Degenerative joint space narrowing in the interphalangeal joints. Soft tissues: Normal. XR/XR hand RT min 3V* [id number] IMPRESSION: No acute bony injury in the right hand.
[2024-11-18 02:37] VITALS: PULSE 65; O2SAT 99
[2024-11-18] MEDS: ondansetron 2 mg/ML SDV 2 mL 4 MG IVP (02:46)
[2024-11-18] MEDS: ketorolac 30 mg/mL INJ 15 MG IVP (02:48)
[2024-11-18 02:49] VITALS: RESP 18; O2SAT 96
[2024-11-18] MEDS: morphine 4 mg/mL SDV 1 mL IVP (02:49)
[2024-11-18] MEDS: sodium chloride 0.9% 1,000 ML 999 ML IV (02:54)
--- NOTE | 2024-11-18 02:57 | W.ED.HEATRA ---
HPI - Head Injury General: Chief complaint: Head Injury Stated complaint: fall hit head/face right side mostly Time Seen by Provider: 11/18/24 02:19 History of Present Illness: 74 year old female had a mechanical fall at home. She fell forward striking her knees, both hands and wrists, and the right side of her forehead. She does take anticoagulants. She had an episode of vomiting. She was getting up to go to the bathroom, as her stomach had been cramping after taking miralax. Stomach cramping is now essentially resolved. Related Data Home Medications ?Medication ?Instructions ?Recorded ?Confirmed atorvastatin 20 mg tablet 20 mg PO BEDTIME 10/01/19 03/27/24 calcium carbonate (Calcium 600) 600 mg PO DAILY 10/01/19 03/27/24 biotin 1 cap PO DAILY 09/23/20 03/27/24 coenzyme Q10 100 mg capsule 200 mg PO BEDTIME 09/23/20 03/27/24 (CoQ-10) acetaminophen 500 mg tablet 1,000 mg PO Q6H PRN Pain 03/08/22 03/27/24 cholecalciferol (vitamin D3) 25 25 mcg PO BEDTIME 03/08/22 03/27/24 mcg (1,000 unit) tablet (Vitamin D3) [id number] 1 tab PO BEDTIME 03/08/22 03/27/24 tablet (Multivitamin 50 Plus tablet) nitroglycerin 0.4 mg sublingual 0.4 mg sublingual Q5M PRN Chest 03/08/22 08/16/23 tablet (Nitrostat) Pain methocarbamol 500 mg tablet 500 mg PO Q8H PRN muscle pain 03/16/22 08/16/23 ammonium lactate 12 % topical cream 1 applic topical DAILY PRN 08/16/23 bisacodyl 5 mg tablet,delayed 15 mg PO BEDTIME PRN 08/16/23 03/27/24 release (Gentle Laxative (bisacodyl)) linaclotide 145 mcg capsule 145 mcg PO DAILY 03/27/24 03/27/24 (Linzess) zolpidem 10 mg tablet (Ambien) 6.25 mg PO 03/27/24 03/27/24 Previous Rx's ?Medication ?Instructions ?Recorded epinephrine 0.3 mg/0.3 mL 0.3 mg (0.3 mL) IM Q10M PRN 09/23/20 injection, auto-injector (EpiPen) hypersensitivity reaction or anaphylaxis #2 ea clopidogrel 75 mg tablet (Plavix) 75 mg PO BEDTIME #90 tabs 03/11/22 metoprolol succinate 25 mg 12.5 mg (1/2 x 25 mg) PO BEDTIME 03/16/22 tablet,extended release 24 hr #45 tabs levothyroxine 25 mcg tablet 25 mcg PO QAM #90 tabs 09/05/22 (Euthyrox) pantoprazole 40 mg tablet,delayed 40 mg PO DAILY 12 months #30 tabs 09/13/22 release (Protonix) hydrocodone 7.5 mg-acetaminophen 1 tab PO Q4H PRN Pain 30 days #7 11/18/24 325 mg tablet tabs Allergies Allergy/AdvReac Type Severity Reaction Status Date / Time No Known Allergies Allergy Verified 03/27/24 13:00 [facility] ED PFSH: Medical History Psychiatric care History of left common carotid artery stent placement History of right common carotid artery stent placement Internal carotid artery stent present Bilateral carotid artery stenosis Patient had bilateral carotid artery stenting in [facility] in 2016? History of common carotid artery stent placement Shortness of breath History of [place] (myocardial infarction) CAD (coronary artery disease) Depression Hyperlipidemia Acquired hypothyroidism Hypertension Insomnia Surgical History History of right coronary artery stent placement incorrect History of laparoscopic appendectomy History of laparoscopy-assisted vaginal hysterectomy History of esophagogastroduodenoscopy (EGD) History of heart artery stent S/P knee replacement S/P cholecystectomy Family History Sister Cancer Mother Heart disease Hypertension Social History Smoking and tobacco/nicotine status: never used tobacco/nicotine Alcohol intake: current Alcohol intake frequency: 0-2 Drinks per Day Physical Exam Const: GENERAL APPEARANCE: cooperative and well kempt; not ill appearing ORIENTATION/CONSCIOUSNESS: Yes awake, Yes oriented to person, Yes oriented to place and Yes oriented to time HENMT: COMMON NORMALS: normocephalic and Normal external nose present HEAD & SCALP: normocephalic, contusion (r eyebrow) and laceration (r eyebrow 1.5cm) NOSE: Normal external nose present MOUTH: Normal oral and palatal mucosa present, lip normal and tongue normal Eye: COMMON NORMALS: Equal, round and reactive pupils present and EOMs intact bilaterally PUPIL: Yes Equal, round and reactive pupils present Neck/C-Spine: GENERAL: Yes trachea midline Chest: CHEST: Yes Symmetrical chest wall rise Resp: COMMON NORMALS: normal respiratory effort, No use of accessory muscles and clear to auscultation bilaterally AUSCULTATION: clear to auscultation bilaterally Cardio: COMMON NORMALS: regular rate RATE: regular rate GI: COMMON NORMALS: Soft to palpation PALPATION: Yes Soft to palpation Extremity: NARRATIVE EXTREMITY EXAM: Examination of the right lower extremity reveals a mild knee effusion. There is generalized anterior knee tenderness. No deformity. Pulses are intact. Examination of the left lower extremity reveals no knee joint effusion. There is an arthroplasty present. No deformity. Minimal tenderness. Examination of the bilateral upper extremities reveals generalized tenderness over bilateral wrists. No effusions. No deformities. Finger movements are symmetrical and intact. Sensation is intact. Neuro: SENSORIUM/ORIENTATION: Yes oriented to person, Yes oriented to place and Yes oriented to time Psych: APPEARANCE: Yes well kempt Procedures Laceration Laceration 1: Site: face Side (If applicable): right Size (cm): 2 Description: linear Depth: simple, single layer Local Anesthetic: lidocaine 1% and with epi Amount of anesthesia used (mL): 4 Pre-repair: wound explored, irrigated extensively and deep structures intact Skin layer closed with: other (prolene) Size (cm): 5-0 Number of sutures: 3 Technique: simple, interrupted Course Vital Signs: Vital signs: Vital Signs Temperature 97.7 F 11/17/24 23:38 Pulse Rate 74 11/18/24 04:59 Respiratory Rate 18 11/18/24 02:49 Blood Pressure 156/82 11/18/24 04:59 Pulse Oximetry 95 11/18/24 04:59 Oxygen Delivery Me thod Room Air 11/18/24 02:37 MDM - Head Injury Medcial Decision Making Laceration to the right eyebrow is repaired without complication. Radiological studies are negative for fracture for acute traumatic injury. White blood cell count is 17 with minimal left shift. CRP is only 10. Other serum testing Was negative. Urinalysis shows leukocytes and red blood cells, but without bacteria. She is nitrate negative. She's feeling improved. She will be allowed home period to return for any new or worsening symptoms. close outpatient follow up. Lab Data 11/18/24 02:44 11/18/24 03:[address] 11/17/24 23:44 IMPRESSION: No acute intracranial hemorrhage or acute calvarial fracture. Cervical Spine CT 11/18/24 00:30 IMPRESSION: No acute fracture or traumatic malalignment. Hand X-Ray 11/18/24 00:31 IMPRESSION: No acute bony injury in the right hand. Knee X-Ray 11/18/24 00:31 IMPRESSION: No acute findings. Laboratory Results WBC 16.94 10^3/uL (3.29-11.43) H 11/18/24 02:44 RBC 5.24 10^6/uL (3.85-5.65) 11/18/24 02:44 Hgb 16.10 g/dL (11.27-16.99) 11/18/24 02:44 Hct 49.2 % (36-47) H 11/18/24 02:44 MCV 93.9 fl (85-98) 11/18/24 02:44 MCH 30.7 pg (27-33) 11/18/24 02:44 MCHC 32.7 g/dL (30-55) 11/18/24 02:44 RDW 13.4 % (12.1-15.1) 11/18/24 02:44 Plt Count 258 10^3/cmm (157-399) 11/18/24 02:44 MPV 10.9 fL (7.4-10.4) H 11/18/24 02:44 Neut % (Auto) 87.8 % 11/18/24 02:44 Lymph % (Auto) 7.6 % 11/18/24 02:44 [place] % (Auto) 3.4 % 11/18/24 02:44 Eos % (Auto) 0.2 % 11/18/24 02:44 Baso % (Auto) 0.4 % 11/18/24 02:44 Neut # (Auto) 14.89 10^3/uL (1.8-7.7) H 11/18/24 02:44 Lymph # (Auto) 1.3 10^3/uL (0.8-4.8) 11/18/24 02:44 [place] # (Auto) 0.6 10^3/uL (0.2-0.9) 11/18/24 02:44 Eos # (Auto) 0.0 10^3/uL (0.0-0.8) 11/18/24 02:44 Baso # (Auto) 0.1 10^3/uL (0.0-0.1) 11/18/24 02:44 Nucleated RBC % (auto) 0 % 11/18/24 02:44 Nucleated RBCs # 0.0 /100WBC 11/18/24 02:44 Sodium 138 mmol/L (136-145) 11/18/24 03:25 Potassium 3.7 mmol/L (3.5-5.1) 11/18/24 03:25 Chloride 101 mmol/L (98-107) 11/18/24 03:25 Carbon Dioxide 18 mmol/L (22-29) L 11/18/24 03:25 Anion Gap 22.7 (5-19) H 11/18/24 03:25 BUN 17 mg/dL (8-23) 11/18/24 03:25 Creatinine 1.0 mg/dL (0.5-0.9) H 11/18/24 03:25 GFR Calculation Not Reportable 11/18/24 03:25 Glucose 126 mg/dL (65-115) H 11/18/24 03:25 Calculated Osmolality 289 mOsm/kg (285-295) 11/18/24 03:25 Calcium 9.2 mg/dL (8.5-10.5) 11/18/24 03:25 Total Bilirubin 0.6 mg/dL (0.15-1.2) 11/18/24 03:25 AST 26 U/L (0-32) 11/18/24 03:25 ALT 24 U/L (0-33) 11/18/24 03:25 Alkaline Phosphatase 88 U/L (35-105) 11/18/24 03:25 C-Reactive Protein 9.8 mg/L (0.0-4.9) H 11/18/24 03:25 Total Protein 6.9 g/dL (6.6-8.7) 11/18/24 03:25 Albumin 3.9 g/dL (3.5-5.2) 11/18/24 03:25 Globulin 3.0 g/dL (1.3-4.6) 11/18/24 03:25 Lipase 22 U/L (13-60) 11/18/24 03:25 Urine Color Yellow (Yellow) 11/18/24 04:18 Urine Appearance Clear (CLEAR) 11/18/24 04:18 Urine pH 5.5 (5-7) 11/18/24 04:18 Ur Specific [place] 1.025 (1.005-1.030) 11/18/24 04:18 Urine Protein 2+ (Negative) A 11/18/24 04:18 Urine Glucose (UA) Negative (Normal) 11/18/24 04:18 Urine Ketones 4+ (Negative) 11/18/24 04:18 Urine Blood 2+ (Negative) A 11/18/24 04:18 Urine Nitrate Negative (Negative) 11/18/24 04:18 Urine Bilirubin Negative (Negative) 11/18/24 04:18 Urine Urobilinogen 1.0 mg/dL (Negative) 11/18/24 04:18 Ur Leukocyte Esterase 2+ (Negative) A 11/18/24 04:18 Urine RBC 21-50 /hpf (0-2) H 11/18/24 04:18 Urine WBC 51-100 /hpf (0-5) H 11/18/24 04:18 Ur Squamous Epith Cells 0-5 /hpf (0-5) 11/18/24 04:18 Amorphous Sediment Not Reportable 11/18/24 04:18 Urine Bacteria None seen /hpf (NONE) 11/18/24 04:18 Hyaline Casts 1.65 /lpf 11/18/24 04:18 All radiology interpretation(s) finalized by discharge Discharge Plan Discharge Patient Disposition: Home Clinical Impression: Concussion without loss of consciousness, Contusion of knee, left, Contusion of knee, right, Abrasion of both knees, Laceration of face Condition: Stable Prescriptions: Continued hydrocodone-acetaminophen 7.5-325 mg tablet 1 tab PO Q4H PRN (Reason: Pain) 30 Days Qty: 7 0RF No Action atorvastatin 20 mg tablet 20 mg PO BEDTIME calcium carbonate [Calcium 600] 600 mg calcium (1,500 mg) tablet 600 mg PO DAILY methocarbamol 500 mg tablet 500 mg PO Q8H PRN (Reason: muscle pain) metoprolol succinate 25 mg tablet extended release 24 hr 12.5 mg PO BEDTIME Qty: 45 3RF pantoprazole [Protonix] 40 mg tablet,delayed release (DR/EC) 40 mg PO DAILY 360 Days Qty: 30 0RF ammonium lactate 12 % cream 1 applic topical DAILY PRN Rx Instructions: Apply to affected area(s) daily, as needed. zolpidem [Ambien] 10 mg tablet 6.25 mg PO bupivacaine (PF) 0.25 % (2.5 mg/mL) solution 3 ml Infiltration ONCE Qty: 1 0RF Linzess 145 mcg capsule 145 mcg PO DAILY clopidogrel [Plavix] 75 mg tablet 75 mg PO BEDTIME Qty: 90 3RF Euthyrox 25 mcg tablet 25 mcg PO QAM Qty: 90 1RF coenzyme Q10 [CoQ-10] 100 mg Capsule 200 mg PO BEDTIME biotin 1 cap PO DAILY epinephrine [EpiPen] 0.3 mg/0.3 mL auto-injector 0.3 mg IM Q10M PRN (Reason: hypersensitivity reaction or anaphylaxis) Qty: 2 0RF Rx Instructions: for 2 doses bisacodyl [Gentle Laxative (bisacodyl)] 5 mg tablet,delayed release (DR/EC) 15 mg PO BEDTIME PRN acetaminophen 500 mg Tablet 1,000 mg PO Q6H PRN (Reason: Pain) Nitrostat 0.4 mg Tablet, Sublingual 0.4 mg SUBLINGUAL Q5M PRN (Reason: Chest Pain) Rx Instructions: do not exceed 3 doses per episode Multivitamin 50 Plus Tablet 1 tab PO BEDTIME Vitamin D3 25 mcg (1,000 unit) Tablet 25 mcg PO BEDTIME Discharge Orders: Discharge ED (Routine); Ordered 11/18/24 Ordered By: Milo Hazel Referrals: Ron Curiel MD [Primary Care Provider, Family Practice] - 4-7 days Patient Instructions: Concussion (ED), Abrasion (ED), Knee Pain (ED), Facial Laceration (ED), Opioid Safety, Pain Management Activity Restrictions/Additional Instructions: Sutures out in 5 to 7 days. Return for any problems. Call your doctor later today for a follow-up appointment. Use pain medication sparingly. Ice may help with pain and swelling. Print Language: Angolan Coding Level of Care Code ED Clinical Laboratory Science Professor for Nick Kaur
[2024-11-18 03:01] LABS: Basophils # 0.1 10^3/uL (0.0-0.1); Basophils % 0.4 %; Eosinophils % 0.2 %; Hematocrit 49.2 % (36-47); Lymphocytes # 1.3 10^3/uL (0.8-4.8); Lymphocytes % 7.6 %; Mean Corpuscular HGB Conc 32.7 g/dL (30-55); Mean Corpuscular Hemoglobin 30.7 pg (27-33); Mean Corpuscular Volume 93.9 fl (85-98); Mean Platelet Volume 10.9 fL (7.4-10.4); Monocytes # 0.6 10^3/uL (0.2-0.9); Monocytes % 3.4 %; Neutrophils # 14.89 10^3/uL (1.8-7.7); Neutrophils % 87.8 %; Nucleated Red Blood Cells % 0 %; Platelet Count 258 10^3/cmm (157-399); Red Blood Count 5.24 10^6/uL (3.85-5.65); Red Cell Distribution Width 13.4 % (12.1-15.1); White Blood Count 16.94 10^3/uL (3.29-11.43)
[2024-11-18 04:00] VITALS: BP 140/76; PULSE 81; O2SAT 97
[2024-11-18 04:09] LABS: Alanine Aminotransferase 24 U/L (0-33); Albumin Level 3.9 g/dL (3.5-5.2); Alkaline Phosphatase 88 U/L (35-105); Anion Gap 22.7 (5-19); Aspartate Amino Transferase 26 U/L (0-32); Blood Urea Nitrogen 17 mg/dL (8-23); C Reactive Protein 9.8 mg/L (0.0-4.9); Calcium 9.2 mg/dL (8.5-10.5); Carbon Dioxide 18 mmol/L (22-29); Chloride 101 mmol/L (98-107); Creatinine Clr Calc Pharmacy 53.6167; Glucose 126 mg/dL (65-115); Lipase 22 U/L (13-60); Osmolality Calculated 289 mOsm/kg (285-295); Potassium 3.7 mmol/L (3.5-5.1); Sodium 138 mmol/L (136-145); Total Bilirubin 0.6 mg/dL (0.15-1.2); Total Protein 6.9 g/dL (6.6-8.7)
[2024-11-18] MEDS: tetanus-dipt-pertussis 0.5 mL SDV IM (04:13)
[2024-11-18 04:27] LABS: Bilirubin Urine Negative (Negative); Blood Urine 2+ (Negative); Glucose Urine UA Negative (Normal); Ketones Urine 4+ (Negative); Leukocyte Esterase Urine 2+ (Negative); Nitrate Urine Negative (Negative); Protein Urine 2+ (Negative); Specific Gravity, Urine 1.025 (1.005-1.030); Urine Appearance Clear (CLEAR); Urine Color Yellow (Yellow); pH Urine 5.5 (5-7)
[2024-11-18 04:29] LABS: Add Urine Microscopic? YES; Bacteria Urine None Seen /hpf; Hyaline Casts Urine 1.65 /lpf; RBC Urine 21-50 /hpf (0-2); Squamous Epithelial Cell Urine 0-5 /hpf (0-5); WBC Urine 51-100 /hpf (0-5)
[2024-11-18 04:59] VITALS: BP 156/82; PULSE 74; O2SAT 95
[2024-11-18 05:13] LABS: Add Urine Culture? Yes
== END 2024-11-18 05:00 | disposition home or self-care (01) ==
PROVIDERS: Emergency Provider Emergency Medicine; PCP Family Medicine
DX: S01.81XA Laceration without foreign body of other part of head, initial encounter (principal); S06.0X0A Concussion without loss of consciousness, initial encounter; S80.02XA Contusion of left knee, initial encounter; S80.01XA Contusion of right knee, initial encounter; S80.212A Abrasion, left knee, initial encounter; S80.211A Abrasion, right knee, initial encounter; Z79.02 Long term (current) use of antithrombotics/antiplatelets; E78.5 Hyperlipidemia, unspecified; I25.10 Atherosclerotic heart disease of native coronary artery without angina pectoris; I10 Essential (primary) hypertension; W19.XXXA Unspecified fall, initial encounter
CPT/HCPCS: 12011; 36415; 70450; 72125; 73130; 73562; 80053; 81001; 83690; 85025; 86140; 87086; 90471; 90715; 96361; 96374; 96375; 99285; J1885; J2270; J2405; J7030

== ENCOUNTER → 2025-04-24 09:37 | Outpatient (BNVA) | payer MEDICARE, SELFPAY | PROVIDERS: PCP Family Medicine; Visit Provider Physician Assistant | DX: M65.312 Trigger thumb, left thumb (principal); M65.342 Trigger finger, left ring finger | CPT/HCPCS: 73130; 99204 ==

== ENCOUNTER 2025-05-27 11:51 | Day surgery (SDC) | payer MEDICARE, SELFPAY ==
[2025-05-27] VITALS (10 sets, daily range): BP systolic 114–156; BP diastolic 60–98; PULSE 63–78; RESP 14–18; TEMP 36.1–36.6; O2SAT 93–96; BMI 31.1
[2025-05-27] MEDS: acetaminophen 1,000 MG/100 ML PIGGYBACK 400 MG IV (13:02)
--- NOTE | 2025-05-27 13:31 | ANES.PREANE2 ---
Pre-Anesthetic Assessment Height/Weight: Height 1.65 m Weight 84.822 kg Temp Pulse Resp BP Pulse Ox O2 Del Method 97.5 F L 78 16 151/80 95 Room Air 05/27/25 12:05/27/25 12:05/27/25 12:05/27/25 12:05/27/25 12:05/27/25 12:28 Operation Date: 05/27/25 15:25 Proposed Procedures p Tenotomy Hand/Wrist Trigger Finger Release left ring finger and thumb(Left) - Severiano Mana, DO Familial anesthetic complications: None Was Beta Jasmeet taken within 24 hours: N/A Was Clonidine taken within 24 hours: N/A Last intake: Intake Last Liquid Date 05/26/25 Last Liquid Time 23:55 Last Solid Date 05/26/25 Last Solid Time 23:30 Social No alcohol and No tobacco Exam alert, oriented x 3, clear to auscultation bilaterally and regular rate & rhythm Airway Mallampati: Class II Dentition: full CV/HEM Coronary Artery Disease and Hypertension GI Gastroesophageal Reflux Disease Metabolic Thyroid Disease Anesthetic Plan ASA status: 3 Anesthesia: MAC Risk of > 500 ml blood loss (7ml/kg in children): No Medications/Allergies Home Medications ?Medication ?Instructions ?Recorded ?Confirmed ?Last Taken ?Type atorvastatin 20 mg tablet 20 mg PO BEDTIME 10/01/19 05/26/25 05/26/25 History calcium carbonate (Calcium 600) 600 mg PO DAILY 10/01/19 05/26/25 05/26/25 History biotin 1 cap PO DAILY 09/23/20 05/26/25 05/26/25 History coenzyme Q10 100 mg capsule 200 mg PO BEDTIME 09/23/20 05/26/25 05/26/25 History (CoQ-10) epinephrine 0.3 mg/0.3 mL 0.3 mg (0.3 mL) IM Q10M PRN 09/23/20 05/26/25 Unknown Rx injection, auto-injector (EpiPen) hypersensitivity reaction or anaphylaxis #2 ea acetaminophen 500 mg tablet 1,000 mg PO Q6H PRN Pain 03/08/22 05/26/25 Unknown History cholecalciferol (vitamin D3) 25 25 mcg PO BEDTIME 03/08/22 05/26/25 05/26/25 History mcg (1,000 unit) tablet (Vitamin D3) [id number]-[id number] 1 tab PO BEDTIME 03/08/22 05/26/25 05/26/25 History tablet (Multivitamin 50 Plus tablet) nitroglycerin 0.4 mg sublingual 0.4 mg sublingual Q5M PRN Chest 03/08/22 05/26/25 Unknown History tablet (Nitrostat) Pain clopidogrel 75 mg tablet (Plavix) 75 mg PO BEDTIME #90 tabs 03/11/22 05/26/25 05/26/25 Rx metoprolol succinate 25 mg 12.5 mg (1/2 x 25 mg) PO BEDTIME 03/16/22 05/26/25 05/26/25 Rx tablet,extended release 24 hr #45 tabs levothyroxine 25 mcg tablet 25 mcg PO QAM #90 tabs 09/05/22 05/26/25 05/26/25 Rx (Euthyrox) pantoprazole 40 mg tablet,delayed 40 mg PO DAILY 12 months #30 tabs 09/13/22 05/26/25 05/26/25 Rx release (Protonix) ammonium lactate 12 % topical cream 1 applic topical DAILY PRN Rash 08/16/23 05/26/25 Unknown History bisacodyl 5 mg tablet,delayed 15 mg PO BEDTIME PRN Constipation 08/16/23 05/26/25 Unknown History release (Gentle Laxative (bisacodyl)) hydrocodone 7.5 mg-acetaminophen 1 tab PO Q4H PRN Pain 30 days #7 11/18/24 05/26/25 Unknown Rx 325 mg tablet tabs Allergies Allergy/AdvReac Type Severity Reaction Status Date / Time No Known Allergies Allergy Verified 05/26/25 14:32 Current Medications Generic Name Dose Route Start Last Admin Trade Name Freq PRN Reason Stop Dose Admin Sodium Chloride 1,000 mls @ 30 mls/hr 05/27/25 12:30 05/27/25 12:54 Sodium Chloride 0.9% IV 05/28/25 12:29 30 mls/hr .Q24H TERRY Administration PFSH Anesthesia Medical History Psychiatric care History of left common carotid artery stent placement History of right common carotid artery stent placement Internal carotid artery stent present Bilateral carotid artery stenosis Patient had bilateral carotid artery stenting in [facility] in 2015? History of common carotid artery stent placement Shortness of breath History of [place] (myocardial infarction) CAD (coronary artery disease) Depression Hyperlipidemia Acquired hypothyroidism Hypertension Insomnia Surgical History History of right coronary artery stent placement incorrect History of laparoscopic appendectomy History of laparoscopy-assisted vaginal hysterectomy History of esophagogastroduodenoscopy (EGD) History of heart artery stent S/P knee replacement S/P cholecystectomy Family History Sister Cancer Mother Heart disease Hypertension Social History Smoking and tobacco/nicotine status: never used tobacco/nicotine Alcohol intake: current Alcohol intake frequency: 0-2 Drinks per Day Data Anesthesia Cardiac Studies: Echocardiogram 01/06/21 Sestamibi Stress Test (Cardiology) 01/06/21
--- NOTE | 2025-05-27 13:39 | W.PM.OPSFHP ---
Same Day Surgery H&P Indication for Procedure/HPI DATE OF PROCEDURE: May 27, 2025 CHIEF COMPLAINT/INDICATIONFOR SURGICAL PROCEDURE: Left ring finger trigger, left thumb trigger PREOP DIAGNOSIS: Left ring finger trigger, left thumb trigger PLANNED PROCEDURE: Operation Date: 05/27/25 15:25 Proposed Procedures p Tenotomy Hand/Wrist Trigger Finger Release left ring finger and thumb(Left) - Severiano Adair, DO Medications/Allergies* Home Medications ?Medication ?Instructions ?Recorded ?Confirmed ?Type atorvastatin 20 mg tablet 20 mg PO BEDTIME 10/01/19 05/26/25 History calcium carbonate (Calcium 600) 600 mg PO DAILY 10/01/19 05/26/25 History biotin 1 cap PO DAILY 09/23/20 05/26/25 History coenzyme Q10 100 mg capsule 200 mg PO BEDTIME 09/23/20 05/26/25 History (CoQ-10) acetaminophen 500 mg tablet 1,000 mg PO Q6H PRN Pain 03/08/22 05/26/25 History cholecalciferol (vitamin D3) 25 25 mcg PO BEDTIME 03/08/22 05/26/25 History mcg (1,000 unit) tablet (Vitamin D3) [id number] 1 tab PO BEDTIME 03/08/22 05/26/25 History tablet (Multivitamin 50 Plus tablet) nitroglycerin 0.4 mg sublingual 0.4 mg sublingual Q5M PRN Chest 03/08/22 05/26/25 History tablet (Nitrostat) Pain ammonium lactate 12 % topical cream 1 applic topical DAILY PRN Rash 08/16/23 05/26/25 History bisacodyl 5 mg tablet,delayed 15 mg PO BEDTIME PRN Constipation 08/16/23 05/26/25 History release (Gentle Laxative (bisacodyl)) Allergies/Adverse Reactions Allergy/AdvReac Type Severity Reaction Status Date / Time No Known Allergies Allergy Verified 05/26/25 14:32 Current Medications: Generic Name Dose Route Start Last Admin Trade Name Freq PRN Reason Stop Dose Admin Sodium Chloride 1,000 mls @ 30 mls/hr 05/27/25 12:30 05/27/25 12:54 Sodium Chloride 0.9% IV 05/28/25 12:29 30 mls/hr .Q24H TERRY Administration Pertinent History/Comorbid Conditions* Medical History (Updated 04/24/25 @ 11:50 by BRODIE Gentile) Psychiatric care History of left common carotid artery stent placement History of right common carotid artery stent placement Internal carotid artery stent present Bilateral carotid artery stenosis Patient had bilateral carotid artery stenting in [facility] in 2016? History of common carotid artery stent placement Shortness of breath History of [place] (myocardial infarction) CAD (coronary artery disease) Depression Hyperlipidemia Acquired hypothyroidism Hypertension Insomnia Surgical History (Updated 09/13/22 @ 12:31 by Jitendra Osorio DO) History of right coronary artery stent placement incorrect History of laparoscopic appendectomy History of laparoscopy-assisted vaginal hysterectomy History of esophagogastroduodenoscopy (EGD) History of heart artery stent S/P knee replacement S/P cholecystectomy Family History (Updated 11/11/19 @ 17:38 by Shena Marina RN) Heart disease Mother Cancer Sister Hypertension Mother Social History Smoking and tobacco/nicotine status: never used tobacco/nicotine Alcohol intake: current Alcohol intake frequency: 0-2 Drinks per Day Pertinent Exam Findings alert, oriented x 3, operative site marked and procedure specific exam findings Please refer to anesthesia's preoperative valuation for heart and lung findings Please refer to detailed orthopedic examination on 04/24/2025 listed below: Left hand?full range of motion in wrist. Negative Tinel's and negative Phalen sign. Positive [facility] grind test. No palpable tenderness over base of thumb. A1 lisa tenderness over thumb and ring finger. Mechanical locking and catching of thumb and ring finger. Sensation to fingers intact. Fingers are warm and well-perfused. Radial pulse 2+ Recommendations Risks and benefits of procedure reviewed and Patient/family agree to proceed Surgery/Procedure today Other Plans: Left ring finger trigger release, left trigger thumb release. Patient understands the ins and outs procedure the risk benefits complication alternative surgical nonsurgical treatment options. Understanding risk of surgery patient elects proceed with surgical invention. All questions answered at this time. Coding Level of Care Code Acute Code for Chg Fwd
[2025-05-27] MEDS: ondansetron 2 mg/ML SDV 2 mL 4 MG IVP (13:54)
[2025-05-27] MEDS: ceFAZolin 2,000 MG in sodium chloride 0.9% (plus) 50 ML 100 MG IV (14:40)
[2025-05-27] MEDS: ROPivacaine 0.5% SDV 30 mL 25 MG INJECTION (15:07)
--- NOTE | 2025-05-27 15:16 | P.BOP_ITS ---
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
--- NOTE | 2025-05-27 15:19 | PM.OP ---
Operative Report Date of procedure: May 27, 2025 Surgeon: Severiano Adair DO Procedure: Preoperative diagnosis: Left thumb trigger Left ring finger trigger Post-op diagnosis: Same Procedure done: Left?thumb?trigger?release Left ring finger trigger release Surgeon: Severiano Adair DO Estimated blood loss: 5 mL Tourniquet time: 9 minutes Anesthesia: mac/local IV fluids: 500mL Complications: None Findings: See operative report narrative Condition: stable Disposition: same day Brief History: Patient presents to the outpatient setting with findings consistent with a Left?thumb?trigger and left ring finger trigger. Patient has been worked up in the outpatient setting and is failed conservative treatment approach.? Patient has a Left?thumb?trigger and left ring finger trigger?that she has tried treating conservatively with recurrence of her?triggering pain.? We talked about treatment options and ultimately patient would like to proceed with a Left?thumb?trigger?release and left ring finger trigger release. We talked about the risk benefits complications and alternatives with surgical nonsurgical treatment options.? Through shared decision making and understanding risk of surgery patient agrees to proceed with a Left?thumb?trigger?release and left ring finger trigger release. All questions answered. Procedure: Patient was seen evaluated in the preoperative holding area.? Consent was reviewed and signed with patient.? Correct extremity was then marked.? Patient was then seen and evaluated by the anesthesia department once cleared for surgery patient was then taken back to the operative suite patient was placed in supine position and all bony prominences well-padded the patient was properly secured to the bed.? Armboard was applied to the Left upper extremity and the Left upper extremity was then placed with a nonsterile tourniquet to the Left upper arm.? This point time the Left upper extremity was then prepped and draped in standard orthopedic fashion.? A final timeout was performed.? Patient received appropriate preoperative antibiotics. Esmarch tourniquet was used exsanguinate the Left upper extremity and tourniquet was insufflated to 250 mmHg.? Local blocks were placed at the left thumb and left ring finger prior to incision. I subsequently started with the left thumb trigger release . I identified patient's MP flexion crease marked appropriate incision transversely across the flexion crease within Nupur's lines sharp scalpel incision was made only through skin.? Once this was done I switched to Littler dissection scissors this I then subsequently spread longitudinally in the planes of the digital nerves.? Once these were identified these were protected by my special events assistant with Kasdan retractors.? Next I identified directly over the A1 lisa of the Left?thumb.? This was significantly thickened and identified to be the area of patient's?thumb?triggering.? I used sharp scalpel to incise the A1 lisa and then utilized my special events assistant to retract the ability and under loupe magnification released the entirety of the A1 lisa both proximally and distally up to the oblique lisa.? This point time the tendon was then inspected and found to be healthy there was some inflammation around the tendon itself but no evidence of tearing and no need for any debridement.? The Ragnell was used to pull the tendon out of the incision and there was no mechanical?triggering I then took the patient's?thumb through range of motion no recurrent?triggering was noted.? ? Next proceeded with the left ring finger trigger release. Under sterile aseptic technique local digital block was performed to the left ring finger.? Once appropriately anesthetized a standard longitudinal/oblique incision was made centering over the A1 lisa .? Sharp scalpel incision was made only through skin and then switched to Littler dissection scissors and spread longitudinally directly over the flexor tendon sheath.? I then mobilized both radially and ulnarly and Kasdan retractors were used and placed by my special events assistant to protect neurovascular bundle.? Next I visualized the A1 lisa and this was incised with a scalpel.? I then switched to dissection scissors and released the A1 lisa both proximally as well as distally to its entirety.? Significant tendon sheath fluid was noted consistent with inflammation.? Tendons intact with no tear. at this point I utilized a rag nail and pulled the tendons FDS and FDP out of the incision and no?triggering was noted.? I then had anesthesia wake up the patient and patient was able to actively flex and extend all digits of the left hand including the left thumb and ring finger with no?triggering.? I then subsequently took the finger through range of motion and no triggering noted as well. This point thorough irrigation was performed.? Tourniquet deflated hemostasis satisfactory with bipolar.? I then subsequently closed the incisions with interrupted nylon suture.? Xeroform 4 x 4's, Kerlix and an Kobe wrap was applied for a bulky soft dressing.? Patient was then subsequently awakened from anesthesia and taken to PACU in stable condition tolerated procedure without issues. Disposition: Patient taken to PACU in stable condition recovering well.? Dressing on in place clean dry and intact.? Patient was receive appropriate discharge instruction as well as pain medication postoperatively.? Patient may be allowed weightbearing as tolerated to the Left hand and encourage range of motion once dressing come down after 72 hours.? Patient to follow-up with me in the office in 2 weeks.? Patient understands and agrees with current plan.? All questions answered.
--- NOTE | 2025-05-27 16:45 | ANE.PACU2 ---
Inpatient post-anesthesia follow up: Airway intact: Yes Vital signs: Temperature 97.9 F Pulse Rate 64 Respiratory Rate 16 Blood Pressure 120/74 Pulse Oximetry 96 Oxygen Delivery Me thod Room Air Oxygen Flow Rate Fraction of Inspir ed Oxygen Hydration adequate: Yes Nausea and vomiting: No Pain level: 1 Mental status: Baseline
== END 2025-05-27 16:45 | disposition home or self-care (01) ==
PROVIDERS: PCP Family Medicine; Visit Provider Student in an Organized Health Care Education/Training Program
PROC: (CPT 26055; principal; 2025-05-27 15:25)
DX: M65.312 Trigger thumb, left thumb (principal); M65.342 Trigger finger, left ring finger; I25.10 Atherosclerotic heart disease of native coronary artery without angina pectoris; Z95.5 Presence of coronary angioplasty implant and graft; I25.2 Old myocardial infarction; E78.5 Hyperlipidemia, unspecified; F32.A Depression, unspecified; E03.9 Hypothyroidism, unspecified; K21.9 Gastro-esophageal reflux disease without esophagitis; Z79.02 Long term (current) use of antithrombotics/antiplatelets; Z79.891 Long term (current) use of opiate analgesic
CPT/HCPCS: 26055 ×2; J0131; J0690; J1885; J2405; J2704; J2795; J3010; J7030; J9999

== ENCOUNTER → 2025-06-11 09:22 | Outpatient (BNVA) | payer MEDICARE, SELFPAY | PROVIDERS: PCP Family Medicine; Visit Provider Physician Assistant | DX: Z98.890 Other specified postprocedural states (principal) | CPT/HCPCS: 99024 ==